=== PATIENT | female | born 1990 | race Hispanic/Latino ===

== ENCOUNTER 2017-12-31 22:04 | Emergency (ER) | payer MEDICAID ==
[2017-12-31 22:41] LABS: BASOPHILS % (AUTO) 0.1 % (0.0-5.0); EOSINOPHILS % (AUTO) 0.2 % (0.0-8.0); HEMATOCRIT 37.5 % (36-48); LYMPHOCYTES % (AUTO) 5.4 % (21.0-51.0); MEAN CORPUSCULAR HEMOGLOBIN 24.7 pg (27.0-33.0); MEAN CORPUSCULAR HGB CONC 34.2 g/dL (32.0-36.0); MEAN CORPUSCULAR VOLUME 72.4 fL (79-99); MONOCYTES % (AUTO) 6.2 % (3.0-13.0); NEUTROPHILS % (AUTO) 88.1 % (40.0-77.0); PLATELET COUNT (AUTO) 373 K/uL (130-400); RED BLOOD CELL COUNT(AUTO) 5.18 MIL/uL (4.00-5.50); RED CELL DISTRIBUTION WIDTH 15.9 % (11.0-15.5); WHITE BLOOD COUNT (AUTO) 11.8 K/uL (4.8-10.8)
[2017-12-31 22:46] LABS: APPEARANCE,URINE Clear (CLEAR); BILIRUBIN,URINE Negative (NEGATIVE); COLOR,URINE Yellow (YELLOW); GLUCOSE, URINE (UA) >=1000 mg/dL (NEGATIVE); KETONES,URINE 15 mg/dL (NEGATIVE); LEUKOCYTE ESTERASE ,URINE Negative (NEGATIVE); NITRATE,URINE Negative (NEGATIVE); OCCULT BLOOD,URINE Negative (NEGATIVE); PROTEIN,URINE POS 1+ (NEGATIVE); UROBILINOGEN,URINE 0.2 mg/dL (0.2-1.0)
[2017-12-31 22:51] LABS: CARBON DIOXIDE 25 mmol/L (21-32); CHLORIDE 99 mmol/L (101-111); CREATININE 0.6 mg/dL (0.5-1.5); GLOMERULAR FILTR. RATE CALC 127 mL/min (>60); GLUCOSE,RANDOM 306 mg/dL (70-105); SODIUM SERUM 136 mmol/L (136-145); UREA NITROGEN, BLOOD 22 mg/dL (7-18)
[2017-12-31 22:53] LABS: HCG,QUAL RESULT NEGATIVE (NEGATIVE)
[2017-12-31 22:55] LABS: BACTERIA,URINE None Seen /HPF (None Seen); RBC,URINE None Seen /HPF (0-1); WBC,URINE None Seen /HPF (0-1)
[2017-12-31 22:56] LABS: INR 0.91 (0.85-1.15); PROTHROMBIN TIME 9.6 SEC (9.6-11.6)
[2017-12-31 23:04] LABS: ALANINE AMINOTRANSFERASE 13 U/L (12-78); ALBUMIN 3.3 g/dL (3.5-5.0); AMYLASE 45 U/L (25-115); ASPARTATE AMINOTRANSFERASE 17 U/L (10-37); BILIRUBIN,TOTAL 0.3 mg/dL (0.2-1.0); CREATINE KINASE MB < 0.5 ng/mL (0.5-3.6); CREATINE KINASE, TOTAL 28 U/L (21-232); LIPASE 96 U/L (114-286); TOTAL PROTEIN, SERUM 8.3 g/dL (6.0-8.3)
[2017-12-31 23:15] LABS: AMPHET/METH SCREEN,URINE NEGATIVE (NEGATIVE); BARBITURATE SCREEN, URINE NEGATIVE (NEGATIVE); BENZODIAZEPINES SCREEN,URINE POSITIVE (NEGATIVE); CANNABINOID SCREEN,URINE NEGATIVE (NEGATIVE); COCAINE SCREEN,URINE NEGATIVE (NEGATIVE); OPIATE SCREEN,URINE NEGATIVE (NEGATIVE); PHENCYCLIDINE SCREEN,URINE NEGATIVE (NEGATIVE)
[2018-01-01] MEDS ORDERED: ONDANSETRON HCL MDV 20ML 2 MG/ML VIAL ONE (00:19)
[2018-01-01] MEDS ORDERED: SODIUM CHLORIDE 0.9% 1000ML 1,000 ML IV ONE (00:19)
[2018-01-01] MEDS ORDERED: HYOSCYAMINE SULFATE 0.125 MG TAB.SUBL SL ONE (00:19)
[2018-01-01] MEDS ORDERED: FAMOTIDINE 20MG TAB 20 MG TAB ONE (00:19)
== END 2018-01-01 01:18 | disposition home or self-care (01) ==
LOC: EDH 22:04
DX: R10.11 Right upper quadrant pain (principal); E86.0 Dehydration; E11.65 Type 2 diabetes mellitus with hyperglycemia; R53.1 Weakness; Z90.49 Acquired absence of other specified parts of digestive tract; Z98.890 Other specified postprocedural states
CPT/HCPCS: 36415; 80053; 80305; 81001; 81025; 82150; 82550; 82553; 83690; 84443; 84484; 85025; 85610; 85730; 93005; 96361; 96374; 99285; J7030

== ENCOUNTER 2018-06-20 18:10 | Emergency (ER) | payer MEDICAID | END 2018-06-20 19:08 | disposition home or self-care (01) | LOC: EDH 18:10 | DX: N76.4 Abscess of vulva (principal); E11.9 Type 2 diabetes mellitus without complications; Z90.49 Acquired absence of other specified parts of digestive tract ==

== ENCOUNTER 2018-09-19 09:42 | Emergency (ER) | payer MEDICAID ==
[2018-09-19] MEDS ORDERED: ACETAMINOPHEN 325 MG TAB ONE (10:17)
== END 2018-09-19 10:41 | disposition home or self-care (01) ==
LOC: EDH 09:42
DX: S02.2XXA Fracture of nasal bones, initial encounter for closed fracture (principal); E11.9 Type 2 diabetes mellitus without complications; Z87.891 Personal history of nicotine dependence; Y04.2XXA Assault by strike against or bumped into by another person, initial encounter; Y93.89 Activity, other specified; Y92.89 Other specified places as the place of occurrence of the external cause; Y99.8 Other external cause status
CPT/HCPCS: 70160

== ENCOUNTER 2019-11-30 14:48 | Emergency (ER) | payer MEDICAID ==
[2019-11-30 16:37] LABS: APPEARANCE,URINE Clear (CLEAR); BILIRUBIN,URINE Negative (NEGATIVE); COLOR,URINE Yellow (YELLOW); GLUCOSE, URINE (UA) >=1000 mg/dL (NEGATIVE); HCG,QUAL RESULT NEGATIVE (NEGATIVE); KETONES,URINE 40 mg/dL (NEGATIVE); LEUKOCYTE ESTERASE ,URINE Negative (NEGATIVE); NITRATE,URINE Positive (NEGATIVE); OCCULT BLOOD,URINE Negative (NEGATIVE); PH,URINE 5.5 (5.0-8.0); PROTEIN,URINE POS 2+ mg/dL (NEGATIVE); UROBILINOGEN,URINE 0.2 mg/dL (0.2-1.0)
[2019-11-30 16:56] LABS: BACTERIA,URINE Many /HPF (None Seen); RBC,URINE None Seen /HPF (0-1); SQUAMOUS EPITHELIAL CELL,UR 0-2 /HPF (0-2); WBC,URINE 0-1 /HPF (0-1)
[2019-11-30 17:14] LABS: RAPID GROUP A STREP NEGATIVE (NEGATIVE)
[2019-11-30 17:20] LABS: BASE EXCESS,VENOUS BLOOD GAS -2.7 (-2.0-3.0); HCO3,VENOUS BLOOD GAS 22.8 (21.0-28.0); PCO2,VENOUS BLOOD GAS 42 (32-45); PH,VENOUS BLOOD GAS 7.349 (7.350-7.450)
[2019-11-30 17:36] LABS: BASOPHILS % (AUTO) 0.2 % (0.0-5.0); EOSINOPHILS % (AUTO) 0.8 % (0.0-8.0); HEMATOCRIT 35.3 % (36-48); LYMPHOCYTES % (AUTO) 19.8 % (21.0-51.0); MEAN CORPUSCULAR HEMOGLOBIN 25.7 pg (27.0-33.0); MEAN CORPUSCULAR HGB CONC 33.1 g/dL (32.0-36.0); MEAN CORPUSCULAR VOLUME 77.6 fL (79-99); MONOCYTES % (AUTO) 8.6 % (3.0-13.0); NEUTROPHILS % (AUTO) 70.4 % (40.0-77.0); PLATELET COUNT (AUTO) 336 K/uL (130-400); RED BLOOD CELL COUNT(AUTO) 4.55 MIL/uL (4.00-5.50); RED CELL DISTRIBUTION WIDTH 14.6 % (11.0-15.5); WHITE BLOOD COUNT (AUTO) 12.1 K/uL (4.8-10.8)
[2019-11-30] MEDS ORDERED: SODIUM CHLORIDE 0.9% 1000ML 1,000 ML IV ONE (17:40)
[2019-11-30] MEDS ORDERED: ONDANSETRON HCL 4 MG/2 ML VIAL ONE (17:42)
[2019-11-30 18:04] LABS: CREATININE 0.6 mg/dL (0.5-1.5); POTASSIUM 4.1 mmol/L (3.5-5.1)
[2019-11-30 18:05] LABS: INR 0.87 (0.85-1.15); PARTIAL THROMBOPLASTIN TIME 25.2 SEC (26.3-35.5); PROTHROMBIN TIME 9.2 SEC (9.6-11.6)
[2019-11-30 18:09] LABS: ALBUMIN 3.1 g/dL (3.5-5.0); BILIRUBIN,TOTAL 0.8 mg/dL (0.2-1.0); TOTAL PROTEIN, SERUM 8.1 g/dL (6.0-8.3)
[2019-11-30] MEDS ORDERED: INSULIN HUMULIN R 100 UNIT/ML 3ML ONE (18:22)
== END 2019-11-30 19:38 | disposition home or self-care (01) ==
LOC: EDH 14:48
DX: B34.9 Viral infection, unspecified (principal); E11.65 Type 2 diabetes mellitus with hyperglycemia; F41.9 Anxiety disorder, unspecified; Z87.891 Personal history of nicotine dependence
CPT/HCPCS: 36415; 36600; 80053; 81001; 81025; 82010; 82435; 82803; 82947; 82948 ×2; 83605 ×2; 83690; 84132; 84295; 84484; 85025; 85610; 85730; 87804 ×2; 87880; 93005; 96361; 96374; 96375; 99284; J1815; J2405; J7030

== ENCOUNTER 2019-12-15 08:09 | Emergency (ER) | payer MEDICAID ==
[2019-12-15] MEDS ORDERED: ACETAMINOPHEN EXTRA STRENGTH 500 MG TABLET ONE (09:48)
== END 2019-12-15 13:36 | disposition home or self-care (01) ==
LOC: EDH 08:09
DX: S93.401A Sprain of unspecified ligament of right ankle, initial encounter (principal); S90.31XA Contusion of right foot, initial encounter; S80.01XA Contusion of right knee, initial encounter; F41.9 Anxiety disorder, unspecified; E11.9 Type 2 diabetes mellitus without complications; Z90.49 Acquired absence of other specified parts of digestive tract; X58.XXXA Exposure to other specified factors, initial encounter; Y93.89 Activity, other specified; Y92.89 Other specified places as the place of occurrence of the external cause; Y99.8 Other external cause status
CPT/HCPCS: 73562; 73610; 73630; 73700

== ENCOUNTER 2020-07-16 10:19 | Observation (INO) | payer MEDICAID ==
[~2020-07-16] VITALS: Ht 152.4 cm; Wt 74.8 kg
[2020-07-16 10:48] LABS: BASOPHILS % (AUTO) 0.4 % (0.0-5.0); EOSINOPHILS % (AUTO) 1.4 % (0.0-8.0); HEMATOCRIT 35.9 % (36-48); LYMPHOCYTES % (AUTO) 31.8 % (21.0-51.0); MEAN CORPUSCULAR HEMOGLOBIN 23.8 pg (27.0-33.0); MEAN CORPUSCULAR HGB CONC 30.6 g/dL (32.0-36.0); MEAN CORPUSCULAR VOLUME 77.5 fL (79-99); MONOCYTES % (AUTO) 9.1 % (3.0-13.0); NEUTROPHILS % (AUTO) 56.9 % (40.0-77.0); PLATELET COUNT (AUTO) 363 K/uL (130-400); RED BLOOD CELL COUNT(AUTO) 4.63 MIL/uL (4.00-5.50); RED CELL DISTRIBUTION WIDTH 15.1 % (11.0-15.5); WHITE BLOOD COUNT (AUTO) 7.8 K/uL (4.8-10.8)
[2020-07-16] MEDS ORDERED: ONDANSETRON HCL 4 MG/2 ML VIAL ONE (10:49)
[2020-07-16] MEDS ORDERED: SODIUM CHLORIDE 0.9% 1000ML 1,000 ML IV ONE (10:51)
[2020-07-16 11:17] LABS: ALBUMIN 3.3 g/dL (3.5-5.0); BILIRUBIN,DIRECT 0.1 mg/dL (0.0-0.3); BILIRUBIN,TOTAL 0.3 mg/dL (0.2-1.0); CREATININE 0.6 mg/dL (0.5-1.5); POTASSIUM 4.6 mmol/L (3.5-5.1); TOTAL PROTEIN, SERUM 8.1 g/dL (6.0-8.3)
[2020-07-16 11:34] LABS: APPEARANCE,URINE Clear (CLEAR); BILIRUBIN,URINE Negative (NEGATIVE); COLOR,URINE Yellow (YELLOW); GLUCOSE, URINE (UA) >=1000 mg/dL (NEGATIVE); KETONES,URINE 40 mg/dL (NEGATIVE); LEUKOCYTE ESTERASE ,URINE Negative (NEGATIVE); NITRATE,URINE Positive (NEGATIVE); OCCULT BLOOD,URINE Trace (NEGATIVE); PROTEIN,URINE Trace mg/dL (NEGATIVE); UROBILINOGEN,URINE 0.2 mg/dL (0.2-1.0)
[2020-07-16 11:41] LABS: AMPHET/METH SCREEN,URINE NEGATIVE (NEGATIVE); BARBITURATE SCREEN, URINE NEGATIVE (NEGATIVE); BENZODIAZEPINES SCREEN,URINE POSITIVE (NEGATIVE); CANNABINOID SCREEN,URINE NEGATIVE (NEGATIVE); COCAINE SCREEN,URINE NEGATIVE (NEGATIVE); OPIATE SCREEN,URINE NEGATIVE (NEGATIVE); PHENCYCLIDINE SCREEN,URINE NEGATIVE (NEGATIVE)
[2020-07-16 11:48] LABS: HCG,QUAL RESULT NEGATIVE (NEGATIVE)
[2020-07-16 12:04] LABS: ABG OXYGEN SATURATION 84.1 % (95.0-99.0); BASE EXCESS,VENOUS BLOOD GAS -6.2 (-2.0-3.0); HCO3,VENOUS BLOOD GAS 19.2 (21.0-28.0); PCO2,VENOUS BLOOD GAS 38 (32-45); PH,VENOUS BLOOD GAS 7.324 (7.350-7.450)
[2020-07-16] MEDS ORDERED: INSULIN HUMULIN R 100 UNIT/ML 3ML ONE (12:04)
[2020-07-16 13:05] LABS: BACTERIA,URINE Many /HPF (None Seen)
[2020-07-16 13:06] LABS: RBC,URINE 0-1 /HPF (0-1)
[2020-07-16 13:38] LABS: CREATININE 0.5 mg/dL (0.5-1.5); POTASSIUM 3.9 mmol/L (3.5-5.1)
[2020-07-16 14:15] LABS: ABG BASE EXCESS -7.8 mmol/L (-2.0-3.0); ABG HCO3 18.3 mmol/L (21.0-28.0); ABG OXYGEN SATURATION 95.3 % (95.0-99.0); ABG PCO2 39 mmHg (32-45)
[2020-07-16] MEDS ORDERED: DEXTROSE 50%-WATER 50 ML DISP.SYRIN IV PRN (14:45)
[2020-07-16] MEDS ORDERED: MORPHINE SULFATE 4 MG/1ML SYG IV PRN (14:45)
[2020-07-16] MEDS ORDERED: MAGNESIUM 2GM PREMIX 50ML 50 ML IV PRN (14:45)
[2020-07-16] MEDS ORDERED: POTASSIUM CHLORIDE 10% ELIXIR 20 MEQ/15 ML UDCUP PO PRN (14:45)
[2020-07-16] MEDS ORDERED: GLUCAGON 1MG KIT 1 MG ML IM PRN (14:45)
[2020-07-16] MEDS ORDERED: ACETAMINOPHEN-CODEINE 300/30MG TAB PO PRN (14:45)
[2020-07-16] MEDS ORDERED: LIDOCAINE HCL-MPF 1% 2ML VIAL IV PRN (14:45)
[2020-07-16] MEDS ORDERED: POTASSIUM CHLORIDE 20MEQ/100ML 100 ML IV PRN (14:45)
[2020-07-16] MEDS: SODIUM CHLORIDE 0.9% 1000ML 1,000 ML IV SCH (16:35)
[2020-07-16] MEDS: INSULIN HUMULIN R 100 UNIT/ML 3ML SQ SCH ×2 (16:39→22:13)
[2020-07-16 16:47] VITALS: BP 133/84
[2020-07-16] MEDS: METRONIDAZOLE 500MG/100ML BAG 100 ML IV SCH ×2 (17:38→22:04)
[2020-07-16] MEDS: LEVOFLOXACIN 500 MG TABLET PO SCH (17:38)
[2020-07-16 18:10] LABS: CREATININE 0.5 mg/dL (0.5-1.5); MAGNESIUM 1.6 mg/dL (1.80-2.40); POTASSIUM 3.8 mmol/L (3.5-5.1)
[2020-07-16 19:00] VITALS: BP 136/77
[2020-07-16] MEDS: INSULIN GLARGINE 100 UNITS/ML 10 ML VIAL SQ SCH (22:11)
[2020-07-16 23:00] VITALS: BP 136/74
[2020-07-17] VITALS (7 sets, daily range): BP systolic 105–138; BP diastolic 65–83
[2020-07-17 01:15] LABS: CREATININE 0.4 mg/dL (0.5-1.5); MAGNESIUM 1.6 mg/dL (1.80-2.40); POTASSIUM 3.4 mmol/L (3.5-5.1)
[2020-07-17] MEDS: POTASSIUM CHLORIDE 20 MEQ ERTAB PO PRN ×2 (01:57→04:07)
[2020-07-17] MEDS: SODIUM CHLORIDE 0.9% 1000ML 1,000 ML IV SCH ×3 (02:07→20:45)
[2020-07-17] MEDS: INSULIN HUMULIN R 100 UNIT/ML 3ML SQ SCH ×7 (04:00→23:37)
[2020-07-17] MEDS: METRONIDAZOLE 500MG/100ML BAG 100 ML IV SCH ×3 (06:50→23:24)
[2020-07-17 07:28] LABS: CREATININE 0.4 mg/dL (0.5-1.5); POTASSIUM 4.2 mmol/L (3.5-5.1)
[2020-07-17] MEDS: LEVOFLOXACIN 500 MG TABLET PO SCH (08:39)
[2020-07-17] MEDS: ENOXAPARIN SODIUM 40 MG/0.4 ML SYRINGE SQ SCH (08:40)
--- NOTE | 2020-07-17 10:45 | NUR ---
KESHIA STEPHENS TALK TO THE PT, EDUCATED ABOUT CONDITION, TREATMENT AND ANSWERED ALL THE QUESTIONS THAT PT HAD.
[2020-07-17 12:29] LABS: CREATININE 0.6 mg/dL (0.5-1.5); MAGNESIUM 1.9 mg/dL (1.80-2.40); POTASSIUM 4.4 mmol/L (3.5-5.1)
[2020-07-17] MEDS ORDERED: ONDANSETRON HCL 4 MG/2 ML VIAL ONE (15:40)
[2020-07-17] MEDS ORDERED: ONDANSETRON HCL 4 MG/2 ML VIAL IVP PRN (15:45)
--- NOTE | 2020-07-17 19:27 | NUR ---
cm note met with patient and states resides at home with aunt and grandmother, independent with adls/ambulation, no dme. no home services. 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 dc plan is back home at de. states no dc needs. Addendum: 07/17/20 at 1930 by SUSANNE BURLESON CM Amended: Links added.
[2020-07-17] MEDS: INSULIN GLARGINE 100 UNITS/ML 10 ML VIAL SQ SCH (20:12)
[2020-07-18 03:00] VITALS: BP 108/58
[2020-07-18] MEDS: INSULIN HUMULIN R 100 UNIT/ML 3ML SQ SCH ×3 (04:15→12:01)
[2020-07-18] MEDS: SODIUM CHLORIDE 0.9% 1000ML 1,000 ML IV SCH (06:06)
[2020-07-18 06:24] LABS: BASOPHILS % (AUTO) 0.4 % (0.0-5.0); EOSINOPHILS % (AUTO) 1.8 % (0.0-8.0); HEMATOCRIT 29.9 % (36-48); LYMPHOCYTES % (AUTO) 46.5 % (21.0-51.0); MEAN CORPUSCULAR HEMOGLOBIN 23.6 pg (27.0-33.0); MEAN CORPUSCULAR HGB CONC 30.4 g/dL (32.0-36.0); MEAN CORPUSCULAR VOLUME 77.7 fL (79-99); MONOCYTES % (AUTO) 13.6 % (3.0-13.0); NEUTROPHILS % (AUTO) 37.5 % (40.0-77.0); PLATELET COUNT (AUTO) 339 K/uL (130-400); RED BLOOD CELL COUNT(AUTO) 3.85 MIL/uL (4.00-5.50); RED CELL DISTRIBUTION WIDTH 15.3 % (11.0-15.5)
[2020-07-18 06:43] LABS: ALBUMIN 2.4 g/dL (3.5-5.0); BILIRUBIN,TOTAL 0.1 mg/dL (0.2-1.0); CREATININE 0.5 mg/dL (0.5-1.5); MAGNESIUM 1.7 mg/dL (1.80-2.40); POTASSIUM 3.6 mmol/L (3.5-5.1); TOTAL PROTEIN, SERUM 6.3 g/dL (6.0-8.3)
[2020-07-18 07:10] VITALS: BP 134/79
[2020-07-18] MEDS ORDERED: METRONIDAZOLE 500MG/100ML BAG 100 ML IV SCH (08:00)
[2020-07-18] MEDS: LEVOFLOXACIN 500 MG TABLET PO SCH (08:37)
[2020-07-18] MEDS: ENOXAPARIN SODIUM 40 MG/0.4 ML SYRINGE SQ SCH (08:38)
[2020-07-18] MEDS ORDERED: LEVO500T89 PO (10:07)
[2020-07-18] MEDS ORDERED: POLY17PO4 PO (10:07)
[2020-07-18] MEDS ORDERED: DOCU-116 PO (10:07)
[2020-07-18 11:17] VITALS: BP 134/82
--- NOTE | 2020-07-18 13:58 | NUR ---
discharge discharge instructions given to patient, verbalized understanding. removed iv, removed tele.
== END 2020-07-18 13:50 | disposition home or self-care (01) ==
LOC: EDH 10:19 → EDHIP 10:20 → 4BH 16:17
PROVIDERS: ADMIT Internal Medicine Critical Care Medicine; ATTEND Internal Medicine Critical Care Medicine
DX: K59.00 Constipation, unspecified (principal); R19.7 Diarrhea, unspecified; N39.0 Urinary tract infection, site not specified; E11.9 Type 2 diabetes mellitus without complications; F41.9 Anxiety disorder, unspecified; Z90.49 Acquired absence of other specified parts of digestive tract; Z79.4 Long term (current) use of insulin; Z79.899 Other long term (current) drug therapy
CPT/HCPCS: 36415 ×3; 36600 ×2; 74176; 80048 ×6; 80053; 80076; 80305; 81001; 81025; 82010; 82550; 82803 ×2; 82948 ×10; 83690; 83735 ×5; 85025 ×2; 87046; 87077; 87088; 87186; 87493; 96361 ×3; 96365; 96366 ×3; 96367; 96372 ×5; 99284; G0378 ×50; J1650 ×2; J1815 ×6; J2405 ×2; J3475; J3490 ×6; J7030; 96368

== ENCOUNTER 2020-08-26 23:21 | Emergency (ER) | payer MEDICAID ==
[~2020-08-26 23:21] MED LIST: DOCU-116 PO; LEVO500T89 PO; POLY17PO4 PO
[2020-08-27] MEDS ORDERED: ACETAMINOPHEN EXTRA STRENGTH 500 MG TABLET ONE (00:20)
[2020-08-27] MEDS ORDERED: IBUPROFEN 600 MG TABLET ONE (00:20)
[2020-08-27] MEDS ORDERED: TETANUS/DIPHTHERIA TOXOID [ADULT] 0.5 ML VIAL IM ONE (00:21)
[2020-08-27] MEDS ORDERED: CYCLOBENZAPRINE HCL 10 MG TABLET ONE (00:21)
== END 2020-08-27 02:03 | disposition home or self-care (01) ==
LOC: EDH 23:21
DX: S01.81XA Laceration without foreign body of other part of head, initial encounter (principal); S20.219A Contusion of unspecified front wall of thorax, initial encounter; E11.9 Type 2 diabetes mellitus without complications; I10 Essential (primary) hypertension; Z98.890 Other specified postprocedural states; Z90.49 Acquired absence of other specified parts of digestive tract; Y08.89XA Assault by other specified means, initial encounter; Y93.89 Activity, other specified; Y92.098 Other place in other non-institutional residence as the place of occurrence of the external cause; Y99.8 Other external cause status
CPT/HCPCS: 71046; 81025; 82948; 90471; 90714; 93005

== ENCOUNTER 2020-09-10 12:32 | Inpatient (IN) | payer MEDICAID ==
[~2020-09-10] VITALS: Ht 152.4 cm; Wt 75.0 kg
[2020-09-10] MEDS ORDERED: ACETAMINOPHEN-CODEINE 300/30MG TAB ONE (12:49)
[2020-09-10 13:22] LABS: RAPID GROUP A STREP POSITIVE (NEGATIVE)
[2020-09-10 13:25] LABS: BASOPHILS % (AUTO) 0.4 % (0.0-5.0); EOSINOPHILS % (AUTO) 0.1 % (0.0-8.0); HEMATOCRIT 44.8 % (36-48); MEAN CORPUSCULAR HEMOGLOBIN 22.6 pg (27.0-33.0); MEAN CORPUSCULAR HGB CONC 28.3 g/dL (32.0-36.0); MEAN CORPUSCULAR VOLUME 79.6 fL (79-99); MONOCYTES % (AUTO) 8.4 % (3.0-13.0); NEUTROPHILS % (AUTO) 81.2 % (40.0-77.0); PLATELET COUNT (AUTO) 458 K/uL (130-400); RED BLOOD CELL COUNT(AUTO) 5.63 MIL/uL (4.00-5.50); RED CELL DISTRIBUTION WIDTH 15.7 % (11.0-15.5); WHITE BLOOD COUNT (AUTO) 15.1 K/uL (4.8-10.8)
[2020-09-10] MEDS ORDERED: CEFTRIAXONE SODIUM 1 GM ONE (13:43)
[2020-09-10 13:46] LABS: ALBUMIN 3.6 g/dL (3.5-5.0); BILIRUBIN,TOTAL 0.4 mg/dL (0.2-1.0); CREATININE 1.1 mg/dL (0.5-1.5); POTASSIUM 5.3 mmol/L (3.5-5.1); TOTAL PROTEIN, SERUM 10.1 g/dL (6.0-8.3)
[2020-09-10] MEDS ORDERED: SODIUM CHLORIDE 0.9% 50 ML IV ONE ×2 (13:46→14:40)
[2020-09-10] MEDS ORDERED: SODIUM CHLORIDE 0.9% 100 ML IV ONE ×2 (13:46→15:24)
[2020-09-10] MEDS ORDERED: BENZONATATE 100 MG CAPSULE PO ONE (14:07)
[2020-09-10 14:19] LABS: ABG BASE EXCESS -21.3 mmol/L (-2.0-3.0); ABG HCO3 4.8 mmol/L (21.0-28.0); ABG OXYGEN SATURATION 98.3 % (95.0-99.0); ABG PCO2 < 15 mmHg (32-45)
[2020-09-10] MEDS ORDERED: INSULIN HUMULIN R 100 UNIT/ML 3ML ONE ×2 (14:19→15:26)
[2020-09-10] MEDS ORDERED: AZITHROMYCIN 250 MG TABLET PO ONE (14:25)
[2020-09-10] MEDS ORDERED: SODIUM CHLORIDE 0.9% 1000ML 1,000 ML IV ONE (14:25)
[2020-09-10] MEDS ORDERED: SODIUM BICARB 50MEQ 50ML VIAL 50 ML ONE (14:39)
[2020-09-10] MEDS ORDERED: SODIUM CHLORIDE 0.9% 1000ML 1,000 ML IV SCH ×2 (16:45)
[2020-09-10] MEDS ORDERED: POTASSIUM CHLORIDE 20MEQ/100ML 100 ML IV PRN (16:45)
[2020-09-10] MEDS ORDERED: LABETALOL 20 MG/4 ML DISP.SYRIN IV PRN (16:45)
[2020-09-10] MEDS ORDERED: MAGNESIUM 2GM PREMIX 50ML 50 ML IV PRN (16:45)
[2020-09-10] MEDS ORDERED: POTASSIUM CHLORIDE 10MEQ/100ML 100 ML IV PRN (16:45)
[2020-09-10] MEDS ORDERED: ONDANSETRON HCL 4 MG/2 ML VIAL IVP PRN (16:45)
[2020-09-10] MEDS ORDERED: LIDOCAINE HCL-MPF 1% 2ML VIAL IV PRN (16:45)
[2020-09-10] MEDS ORDERED: ACETAMINOPHEN 325 MG TAB PO PRN (16:45)
[2020-09-10] MEDS ORDERED: DEXTROSE 5 %-0.45 % NACL 1,000 ML IV PRN (16:45)
[2020-09-10] MEDS ORDERED: ACETAMINOPHEN 650 MG SUPPOSITORY RC PRN (16:45)
[2020-09-10 17:43] LABS: APPEARANCE,URINE Clear (CLEAR); BILIRUBIN,URINE Negative (NEGATIVE); COLOR,URINE Yellow (YELLOW); GLUCOSE, URINE (UA) >=1000 mg/dL (NEGATIVE); KETONES,URINE >=160 mg/dL (NEGATIVE); LEUKOCYTE ESTERASE ,URINE Negative (NEGATIVE); NITRATE,URINE Negative (NEGATIVE); OCCULT BLOOD,URINE Small (NEGATIVE); PROTEIN,URINE 300 mg/dL (NEGATIVE); UROBILINOGEN,URINE 0.2 mg/dL (0.2-1.0)
[2020-09-10] MEDS ORDERED: LACTATED RINGERS 1000ML 1,000 ML IV ONE ×2 (18:00→23:53)
[2020-09-10 18:04] LABS: BACTERIA,URINE Few /HPF (None Seen); MUCUS,URINE Few LPF (None Seen); SQUAMOUS EPITHELIAL CELL,UR 0-2 /HPF (0-2); YEAST,URINE BUDDING Few /HPF (None Seen)
[2020-09-10 18:16] LABS: CREATININE 0.9 mg/dL (0.5-1.5); POTASSIUM 4.8 mmol/L (3.5-5.1)
[2020-09-10 22:13] LABS: POTASSIUM 3.8 mmol/L (3.5-5.1)
[2020-09-11 01:15] LABS: CREATININE 0.9 mg/dL (0.5-1.5); POTASSIUM 3.2 mmol/L (3.5-5.1)
[2020-09-11] MEDS ORDERED: LIDOCAINE HCL-MPF 1% 2ML VIAL ONE ×4 (01:25→12:30)
[2020-09-11] MEDS ORDERED: POTASSIUM CHLORIDE 10MEQ/100ML 100 ML IV ONE ×2 (01:25→02:17)
[2020-09-11] MEDS ORDERED: DEXTROSE 5 %-0.45 % NACL 1,000 ML IV ONE (01:49)
[2020-09-11] MEDS ORDERED: POTASSIUM CHLORIDE 10MEQ/100ML 100 ML IV PRN (04:15)
[2020-09-11] MEDS ORDERED: MAGNESIUM 2GM PREMIX 50ML 50 ML IV PRN (04:15)
[2020-09-11 05:32] LABS: BASOPHILS % (AUTO) 0.3 % (0.0-5.0); EOSINOPHILS % (AUTO) 0.1 % (0.0-8.0); HEMATOCRIT 31.4 % (36-48); LYMPHOCYTES % (AUTO) 31.3 % (21.0-51.0); MEAN CORPUSCULAR HEMOGLOBIN 22.6 pg (27.0-33.0); MEAN CORPUSCULAR HGB CONC 30.3 g/dL (32.0-36.0); MEAN CORPUSCULAR VOLUME 74.8 fL (79-99); MONOCYTES % (AUTO) 9.7 % (3.0-13.0); NEUTROPHILS % (AUTO) 57.7 % (40.0-77.0); PLATELET COUNT (AUTO) 324 K/uL (130-400); RED CELL DISTRIBUTION WIDTH 15.8 % (11.0-15.5); WHITE BLOOD COUNT (AUTO) 8.7 K/uL (4.8-10.8)
[2020-09-11 05:41] LABS: HEMOGLOBIN A1C 12.7 % (4.0-6.0)
[2020-09-11 06:18] LABS: CREATININE 0.7 mg/dL (0.5-1.5); MAGNESIUM 1.7 mg/dL (1.80-2.40); POTASSIUM 3.8 mmol/L (3.5-5.1)
[2020-09-11] MEDS ORDERED: MAGNESIUM 2GM PREMIX 50ML 50 ML IV ONE (08:13)
[2020-09-11] MEDS ORDERED: ENOXAPARIN SODIUM 40 MG/0.4 ML SYRINGE SQ ONE (08:13)
[2020-09-11] MEDS ORDERED: AZITHROMYCIN 500MG+NS 250ML IV SCH (09:00)
[2020-09-11] MEDS ORDERED: ENOXAPARIN SODIUM 40 MG/0.4 ML SYRINGE SQ SCH (09:00)
[2020-09-11] MEDS: CEFTRIAXONE SODIUM 1 GM IVP SCH (09:00)
[2020-09-11] MEDS: AZITHROMYCIN 500MG+NS 250ML 250 ML IV SCH (09:00)
[2020-09-11 09:55] LABS: CREATININE 0.8 mg/dL (0.5-1.5)
[2020-09-11 10:01] LABS: POTASSIUM 2.7 mmol/L (3.5-5.1)
[2020-09-11] MEDS ORDERED: POTASSIUM CHLORIDE 20MEQ/100ML 100 ML IV ONE ×2 (10:24→12:30)
[2020-09-11 10:41] LABS: ABG OXYGEN SATURATION 91.5 % (95.0-99.0); BASE EXCESS,VENOUS BLOOD GAS -5.9 (-2.0-3.0); HCO3,VENOUS BLOOD GAS 20.1 (21.0-28.0); PCO2,VENOUS BLOOD GAS 41 (32-45); PH,VENOUS BLOOD GAS 7.305 (7.350-7.450)
[2020-09-11] MEDS: METOCLOPRAMIDE 10 MG/2 ML VIAL IVP SCH ×2 (11:30→17:00)
[2020-09-11 11:34] LABS: AMPHET/METH SCREEN,URINE NEGATIVE (NEGATIVE); BARBITURATE SCREEN, URINE NEGATIVE (NEGATIVE); BENZODIAZEPINES SCREEN,URINE POSITIVE (NEGATIVE); CANNABINOID SCREEN,URINE POSITIVE (NEGATIVE); COCAINE SCREEN,URINE POSITIVE (NEGATIVE); OPIATE SCREEN,URINE POSITIVE (NEGATIVE); PHENCYCLIDINE SCREEN,URINE NEGATIVE (NEGATIVE)
[2020-09-11 13:13] LABS: CREATININE 0.8 mg/dL (0.5-1.5); POTASSIUM 3.4 mmol/L (3.5-5.1)
[2020-09-11] MEDS ORDERED: INSULIN HUMULIN R 100 UNIT/ML 3ML ONE (13:53)
[2020-09-11] MEDS ORDERED: SODIUM CHLORIDE 0.9% 50 ML IV ONE (13:55)
[2020-09-11] MEDS ORDERED: CEFTRIAXONE SODIUM 1 GM ONE (13:55)
[2020-09-11] MEDS ORDERED: SILVER SULFADIAZINE CREAM 50 GM TP ONE (13:57)
[2020-09-11] MEDS ORDERED: INSULIN GLARGINE 100 UNITS/ML 10 ML VIAL SQ ONE (14:00)
[2020-09-11] MEDS ORDERED: LACTATED RINGERS 1000ML 1,000 ML IV ONE (14:39)
[2020-09-11] MEDS ORDERED: AZITHROMYCIN 500MG+NS 250ML 250 ML IV ONE (14:44)
[2020-09-11] MEDS: LACTATED RINGERS 1000ML 1,000 ML IV SCH (16:00)
[2020-09-11 18:29] LABS: CREATININE 0.4 mg/dL (0.5-1.5); POTASSIUM 3.4 mmol/L (3.5-5.1)
[2020-09-11 20:20] VITALS: BP 119/78
[2020-09-11] MEDS ORDERED: DEXTROSE 50%-WATER 50 ML DISP.SYRIN IV PRN (20:45)
[2020-09-11] MEDS ORDERED: GLUCAGON 1MG KIT 1 MG ML IM PRN (20:45)
[2020-09-11] MEDS: PHARMACY COMMUNICATION MISC SCH (21:00)
[2020-09-11] MEDS ORDERED: INSULIN R PO SS1 SQ SCH (21:00)
[2020-09-11] MEDS ORDERED: PHARMACY COMMUNICATION MISC SCH (21:15)
[2020-09-11] MEDS: FAMOTIDINE 20MG TAB 20 MG TAB PO SCH (21:39)
[2020-09-11] MEDS: INSULIN GLARGINE 100 UNITS/ML 10 ML VIAL SQ SCH (21:40)
[2020-09-11 21:46] LABS: CREATININE 0.8 mg/dL (0.5-1.5); POTASSIUM 3.6 mmol/L (3.5-5.1)
[2020-09-11] MEDS ORDERED: POTASSIUM CHLORIDE 10% ELIXIR 20 MEQ/15 ML UDCUP PO PRN (22:15)
[2020-09-11] MEDS ORDERED: POTASSIUM CHLORIDE 20MEQ/100ML 100 ML IV PRN (22:15)
[2020-09-11] MEDS ORDERED: LIDOCAINE HCL-MPF 1% 2ML VIAL IV PRN (22:15)
[2020-09-11] MEDS: POTASSIUM CHLORIDE 20 MEQ ERTAB PO PRN (23:50)
[2020-09-12] MEDS: PHARMACY COMMUNICATION MISC SCH ×4 (01:00→12:23)
[2020-09-12] MEDS: LACTATED RINGERS 1000ML 1,000 ML IV SCH ×2 (01:42→05:20)
[2020-09-12 01:43] VITALS: BP 143/82
[2020-09-12 03:47] VITALS: BP 128/80
[2020-09-12 05:19] LABS: HEMATOCRIT 32.3 % (36-48); MEAN CORPUSCULAR HEMOGLOBIN 22.6 pg (27.0-33.0); MEAN CORPUSCULAR HGB CONC 30.3 g/dL (32.0-36.0); MEAN CORPUSCULAR VOLUME 74.4 fL (79-99); RED BLOOD CELL COUNT(AUTO) 4.34 MIL/uL (4.00-5.50); WHITE BLOOD COUNT (AUTO) 7.5 K/uL (4.8-10.8)
[2020-09-12 05:46] LABS: CREATININE 0.6 mg/dL (0.5-1.5); MAGNESIUM 1.8 mg/dL (1.80-2.40); POTASSIUM 3.6 mmol/L (3.5-5.1)
[2020-09-12] MEDS: METOCLOPRAMIDE 10 MG/2 ML VIAL IVP SCH ×3 (05:46→16:34)
[2020-09-12] MEDS: INSULIN GLARGINE 100 UNITS/ML 10 ML VIAL SQ SCH ×2 (05:47→21:07)
[2020-09-12] MEDS: POTASSIUM CHLORIDE 20 MEQ ERTAB PO PRN ×2 (06:18→16:36)
[2020-09-12] MEDS: INSULIN HUMULIN R 100 UNIT/ML 3ML SQ SCH ×8 (07:33→19:49)
[2020-09-12 07:58] VITALS: BP 129/77
[2020-09-12] MEDS ORDERED: INSULIN HUMULIN R 100 UNIT/ML 3ML SQ SCH (08:00)
[2020-09-12 11:55] VITALS: BP 126/75
[2020-09-12] MEDS: AZITHROMYCIN 500MG+NS 250ML 250 ML IV SCH (12:03)
[2020-09-12] MEDS: CEFTRIAXONE SODIUM 1 GM IVP SCH (12:03)
[2020-09-12] MEDS: FAMOTIDINE 20MG TAB 20 MG TAB PO SCH ×2 (12:04→21:05)
[2020-09-12] MEDS: ENOXAPARIN SODIUM 40 MG/0.4 ML SYRINGE SQ SCH (12:05)
--- NOTE | 2020-09-12 13:56 | NUR ---
INITIAL SW spoke with patient. Patient lives with her aunt, Parul Goldberg. She has no home services. DME: glucometer (uses insulin). Patient is able to drive and complete ADL's independently. She is not currently working. PCP is Dr. Luis A Roque. Pharmacy is [facility] located on [address]. DCP is home. Addendum: 09/12/20 at 1358 by JOJO NAVARRO SS Amended: Links added.
[2020-09-12] MEDS: GUAIFENESIN-DM 200/20 MG 10 ML PO PRN ×2 (14:49→22:17)
[2020-09-12 16:32] VITALS: BP 117/70
[2020-09-12 20:00] VITALS: BP 122/83
[2020-09-12] MEDS ORDERED: MULTIVITAMIN TABLET PO SCH (20:45)
[2020-09-12] MEDS ORDERED: THIAMINE HCL 100 MG TABLET PO SCH (20:50)
[2020-09-12] MEDS: CHLORDIAZEPOXIDE HCL 25 MG CAP PO PRN (22:17)
[2020-09-13] VITALS: BP 137/80
[2020-09-13] MEDS: CHLORDIAZEPOXIDE HCL 25 MG CAP PO PRN (01:29)
[2020-09-13 04:00] VITALS: BP 129/81
[2020-09-13 06:36] LABS: HEMATOCRIT 31.2 % (36-48); MEAN CORPUSCULAR HEMOGLOBIN 22.6 pg (27.0-33.0); MEAN CORPUSCULAR HGB CONC 30.4 g/dL (32.0-36.0); MEAN CORPUSCULAR VOLUME 74.3 fL (79-99); PLATELET COUNT (AUTO) 281 K/uL (130-400); RED CELL DISTRIBUTION WIDTH 16.4 % (11.0-15.5); WHITE BLOOD COUNT (AUTO) 4.9 K/uL (4.8-10.8)
[2020-09-13 06:51] LABS: ALBUMIN 2.2 g/dL (3.5-5.0); BILIRUBIN,TOTAL 0.1 mg/dL (0.2-1.0); CREATININE 0.4 mg/dL (0.5-1.5); MAGNESIUM 1.8 mg/dL (1.80-2.40); POTASSIUM 3.1 mmol/L (3.5-5.1); TOTAL PROTEIN, SERUM 6.5 g/dL (6.0-8.3)
[2020-09-13 07:00] VITALS: BP 109/67
[2020-09-13] MEDS: METOCLOPRAMIDE 10 MG/2 ML VIAL IVP SCH ×2 (07:11→11:40)
[2020-09-13] MEDS: INSULIN HUMULIN R 100 UNIT/ML 3ML SQ SCH ×4 (07:12→11:45)
[2020-09-13] MEDS: POTASSIUM CHLORIDE 20 MEQ ERTAB PO PRN (07:26)
[2020-09-13] MEDS ORDERED: INSULIN GLARGINE 100 UNITS/ML 10 ML VIAL SQ SCH (07:30)
[2020-09-13 08:12] LABS: EOSINOPHILS % (MANUAL) 5 % (1-6); LYMPHOCYTES % (MANUAL) 48 % (22-44); MAN.DIFF COMMENT-IMPRESSION MANUAL DIFFERENTIAL; MONOCYTES % (MANUAL) 10 % (2-9); PLATELET MORPHOLOGY COMMENT ADEQUATE; SEGMENTED NEUTROPHILS % 37 % (40-70)
[2020-09-13] MEDS ORDERED: AZITHROMYCIN 250 MG TABLET PO SCH (09:00)
[2020-09-13] MEDS ORDERED: MULTIVITAMIN TABLET PO SCH (09:00)
[2020-09-13] MEDS ORDERED: THIAMINE HCL 100 MG TABLET PO SCH (09:00)
[2020-09-13] MEDS: CEFTRIAXONE SODIUM 1 GM IVP SCH (09:34)
[2020-09-13] MEDS: FAMOTIDINE 20MG TAB 20 MG TAB PO SCH (09:35)
[2020-09-13] MEDS: ENOXAPARIN SODIUM 40 MG/0.4 ML SYRINGE SQ SCH (09:36)
[2020-09-13 11:00] VITALS: BP 116/75
--- NOTE | 2020-09-13 12:30 | NUR ---
DISCHARGE INSTRUCTIONS GIVEN TO PATIENT, MADE AWARE OF FOLLOW UP APPOINTMENT WITH DR. CHUA AND AWARE TO SCHEDULE FOLLOW UP WITH DR. SWANN IN 2-[address] SWANN INFO. PROVIDED PRINTED RX FOR INSULIN PER DR. SWANN AND MADE AWARE OF RX SENT TO [facility] FOR LEVAQUIN, COLACE AND MIRALAX. EDUCATED ON ALL MEDICATIONS DIET AND EXERCISE. INSTRUCTED TO STOP TAKING DIET PILLS PER MD. IV AND TELE DISCONTINUED. PATIENT AT THIS TIME DENIES ANY PAIN OR SOB. AMBULATING IN ROOM WITHOUT DIFFICULTY. PATIENT WILL BE PICKED UP BY FAMILY MEMBER
--- NOTE | 2020-09-14 09:50 | NUR ---
TRANSITIONAL CARE - POST-DISCHARGE NOTE NO ANSWER. Called patient at phone number on file. Left voicemail identifying myself and requesting a callback.
== END 2020-09-13 12:44 | disposition home or self-care (01) | DRG 420 ==
LOC: EDH 12:32 → EDHIP 12:33 → 4DH 09-11 20:21
PROVIDERS: ADMIT Internal Medicine; ATTEND Internal Medicine
DX: E10.10 Type 1 diabetes mellitus with ketoacidosis without coma (principal); E86.0 Dehydration; J02.0 Streptococcal pharyngitis; F19.10 Other psychoactive substance abuse, uncomplicated; F10.239 Alcohol dependence with withdrawal, unspecified; N39.0 Urinary tract infection, site not specified; E10.65 Type 1 diabetes mellitus with hyperglycemia; Z20.828 Contact with and (suspected) exposure to other viral communicable diseases; Z90.49 Acquired absence of other specified parts of digestive tract; Z91.19 Patient's noncompliance with other medical treatment and regimen; Z79.4 Long term (current) use of insulin
CPT/HCPCS: 36415; 36600; 70450; 71045; 80048; 80053; 80305; 81001; 82010; 82550; 82803; 82948; 83036; 83605; 83735; 84484; 84702; 85025; 85027; 86701; 87040; 87390; 87426; 87804; 87880; 93005; G0378; J0456; J0696; J1650; J1815; J2765; J3475; J3480; J3490; J7030; J7042; J7120; U0003

== ENCOUNTER 2021-05-14 17:51 | Observation (INO) | payer MEDICAID ==
[~2021-05-14] VITALS: Ht 154.9 cm; Wt 72.6 kg
[~2021-05-14 17:51] MED LIST changes: +ALBUHFA IH; +AMOX-429 PO; +GUAI-1170 PO; +INSU200I SQ; +INSU300I SQ; -LEVO500T89 PO; +PRED20TA3 PO
[2021-05-14 17:53] VITALS: BP 133/78
[2021-05-14] MEDS ORDERED: ACETAMINOPHEN 500 MG TABLET PO ONE (18:30)
[2021-05-14] MEDS ORDERED: GUAIFENESIN-CODEINE 5 ML SYRUP PO ONE (18:30)
[2021-05-14] MEDS ORDERED: KETOROLAC 15MG/ML VIAL (15MG/ML) IV ONE (18:30)
[2021-05-14 19:43] LABS: HEMATOCRIT 31.2 % (36-48); MEAN CORPUSCULAR HEMOGLOBIN 22.4 pg (27.0-33.0); MEAN CORPUSCULAR HGB CONC 30.8 g/dL (32.0-36.0); MEAN CORPUSCULAR VOLUME 72.9 fL (79-99); PLATELET COUNT (AUTO) 261 K/uL (130-400); RED BLOOD CELL COUNT(AUTO) 4.28 MIL/uL (4.00-5.50); RED CELL DISTRIBUTION WIDTH 17.7 % (11.0-15.5)
[2021-05-14 19:54] LABS: CREATININE 0.6 mg/dL (0.5-1.5)
[2021-05-14 19:59] LABS: ALBUMIN 2.5 g/dL (3.5-5.0); BILIRUBIN,TOTAL 0.3 mg/dL (0.2-1.0); TOTAL PROTEIN, SERUM 7.2 g/dL (6.0-8.3)
[2021-05-14 20:26] LABS: BAND NEUTROPHILS % (MANUAL) 4 % (0-2); EOSINOPHILS % (MANUAL) 1 % (1-6); LYMPHOCYTES % (MANUAL) 19 % (22-44); MONOCYTES % (MANUAL) 4 % (2-9); SEGMENTED NEUTROPHILS % 72 % (40-70)
[2021-05-14 20:27] LABS: MAN.DIFF COMMENT-IMPRESSION MANUAL DIFFERENTIAL; PLATELET MORPHOLOGY COMMENT ADEQUATE
[2021-05-14 20:45] LABS: ABG BASE EXCESS 0.1 mmol/L (-2.0-3.0); ABG HCO3 24.5 mmol/L (21.0-28.0); ABG OXYGEN SATURATION 92.3 % (95.0-99.0); ABG PCO2 39 mmHg (32-45)
[2021-05-14 20:51] VITALS: BP 121/74
[2021-05-14 21:51] LABS: ALBUMIN 2.5 g/dL (3.5-5.0); BILIRUBIN,DIRECT 0.1 mg/dL (0.0-0.3); BILIRUBIN,TOTAL 0.3 mg/dL (0.2-1.0); TOTAL PROTEIN, SERUM 6.8 g/dL (6.0-8.3)
[2021-05-14 21:56] LABS: CRP QUANTITATIVE 227.9 mg/L (0.00-9.0)
[2021-05-14] MEDS ORDERED: LACTULOSE 20 GM/30 ML UDCUP PO PRN (22:30)
[2021-05-14] MEDS ORDERED: NITROGLYCERIN 0.4 MG SL TAB SL PRN (22:30)
[2021-05-14] MEDS ORDERED: MAG/ALUM/SIMETH 30 ML UDCUP PO PRN (22:30)
[2021-05-14] MEDS ORDERED: ZOLPIDEM TARTRATE 5 MG TAB PO PRN (22:30)
[2021-05-14] MEDS ORDERED: ACETAMINOPHEN 325 MG TAB PO PRN (22:30)
[2021-05-14] MEDS ORDERED: ONDANSETRON 4MG INJ IV PRN (22:30)
[2021-05-14] MEDS ORDERED: AZITHROMYCIN 500MG VIAL IVPB SCH (23:00)
[2021-05-14] MEDS ORDERED: POTASSIUM CHLORIDE 10% ELIXIR 20 MEQ/15 ML UDCUP PO PRN (23:00)
[2021-05-14] MEDS ORDERED: KCL 20 MEQ ERTAB PO PRN (23:00)
[2021-05-14] MEDS ORDERED: LABETALOL 20MG VIAL IV PRN (23:00)
[2021-05-14] MEDS ORDERED: DEXTROSE 50%-WATER 50 ML DISP.SYRIN IV PRN (23:00)
[2021-05-14] MEDS ORDERED: 0.9% NACL 250ML IVPB SCH ×2 (23:00)
[2021-05-14] MEDS ORDERED: GLUCAGON 1MG KIT 1 MG ML IM PRN (23:00)
[2021-05-14] MEDS ORDERED: DOXYCYCLINE 100MG IVPB (VIAL) IVPB SCH (23:00)
[2021-05-14] MEDS ORDERED: POTASSIUM CHLORIDE 20MEQ/100ML 100 ML IV PRN (23:00)
[2021-05-14] MEDS ORDERED: SOLU-MEDROL 125MG VIAL IVP SCH (23:00)
[2021-05-14] MEDS ORDERED: MAGNESIUM 2GM PREMIX 50ML 50 ML IV PRN (23:00)
[2021-05-14] MEDS ORDERED: IOHEXOL 350 MG/ML 100ML INFUS..BTL IV ONE (23:53)
[2021-05-15] MEDS: DOXYCYCLINE 100MG+NS 250ML IV SCH ×2 (00:07→11:46)
[2021-05-15] MEDS: 0.9% NACL 250ML 250 ML IV SCH ×4 (00:07→23:26)
[2021-05-15] MEDS: AZITHROMYCIN 500MG+NS 250ML IV SCH ×2 (00:07→23:26)
[2021-05-15 01:35] VITALS: BP 124/76
[2021-05-15 02:59] LABS: HEMATOCRIT 29.7 % (36-48); LYMPHOCYTES % (AUTO) 6.7 % (21.0-51.0); MEAN CORPUSCULAR HEMOGLOBIN 22.4 pg (27.0-33.0); MEAN CORPUSCULAR HGB CONC 30.3 g/dL (32.0-36.0); MEAN CORPUSCULAR VOLUME 73.9 fL (79-99); MONOCYTES % (AUTO) 2.8 % (3.0-13.0); NEUTROPHILS % (AUTO) 90.1 % (40.0-77.0); PLATELET COUNT (AUTO) 237 K/uL (130-400); RED BLOOD CELL COUNT(AUTO) 4.02 MIL/uL (4.00-5.50); RED CELL DISTRIBUTION WIDTH 17.8 % (11.0-15.5); WHITE BLOOD COUNT (AUTO) 5.1 K/uL (4.8-10.8)
[2021-05-15 03:19] LABS: ALBUMIN 2.4 g/dL (3.5-5.0); BILIRUBIN,TOTAL 0.2 mg/dL (0.2-1.0); CREATININE 0.6 mg/dL (0.5-1.5); POTASSIUM 3.6 mmol/L (3.5-5.1); TOTAL PROTEIN, SERUM 6.7 g/dL (6.0-8.3)
[2021-05-15 03:46] VITALS: BP 113/67
[2021-05-15] MEDS: FAMOTIDINE 20MG VIAL IV SCH (08:45)
[2021-05-15] MEDS: INSULIN HUMULIN R 100 UNIT/ML 3ML SQ SCH ×4 (08:45→22:03)
[2021-05-15] MEDS: ENOXAPARIN SODIUM 40 MG/0.4 ML SYRINGE SQ SCH (08:45)
[2021-05-15] MEDS ORDERED: DEXAMETHASONE SOD PHOSPHATE 4 MG/ML 1ML VIAL IVP SCH (09:00)
[2021-05-15] MEDS ORDERED: PHARMACY COMMUNICATION MISC SCH (09:00)
[2021-05-15 10:21] VITALS: BP 128/84
[2021-05-15] MEDS: REMDESIVIR (EUA) 520 200 MG in 0.9% NACL 250ML 250 ML IV SCH ×2 (11:00→16:42)
[2021-05-15] MEDS ORDERED: COMPOUND IV REFRIGERATED 1 EACH IVSOLN MISC PRN (11:00)
[2021-05-15 15:53] VITALS: BP 135/75
[2021-05-15] MEDS: GUAIFENESIN-DM 200/20 MG 10 ML PO PRN ×2 (16:41→20:01)
[2021-05-15] MEDS: ACETAMINOPHEN 325 MG TAB PO PRN ×2 (16:42→20:01)
[2021-05-15 20:10] VITALS: BP 124/70
[2021-05-15] MEDS ORDERED: INSULIN GLARGINE 100 UNITS/ML 10 ML VIAL SQ SCH (21:00)
[2021-05-15 22:41] VITALS: BP 119/85
[2021-05-16] MEDS: 0.9% NACL 250ML 250 ML IV SCH ×2 (01:16→11:11)
[2021-05-16] MEDS: DOXYCYCLINE 100MG+NS 250ML IV SCH ×2 (01:16→11:09)
[2021-05-16 02:38] VITALS: BP 124/70
[2021-05-16 05:29] VITALS: BP 116/57
[2021-05-16] MEDS ORDERED: REMDESIVIR LABS MISC SCH (06:00)
[2021-05-16 06:16] LABS: HEMATOCRIT 30.8 % (36-48); MEAN CORPUSCULAR HEMOGLOBIN 22.3 pg (27.0-33.0); MEAN CORPUSCULAR HGB CONC 30.5 g/dL (32.0-36.0); MEAN CORPUSCULAR VOLUME 73.2 fL (79-99); RED BLOOD CELL COUNT(AUTO) 4.21 MIL/uL (4.00-5.50); RED CELL DISTRIBUTION WIDTH 17.8 % (11.0-15.5); WHITE BLOOD COUNT (AUTO) 7.9 K/uL (4.8-10.8)
[2021-05-16 06:32] LABS: CREATININE 0.5 mg/dL (0.5-1.5); MAGNESIUM 1.8 mg/dL (1.80-2.40); POTASSIUM 3.8 mmol/L (3.5-5.1)
[2021-05-16] MEDS: INSULIN HUMULIN R 100 UNIT/ML 3ML SQ SCH ×2 (07:30→12:30)
[2021-05-16 07:33] LABS: CRP QUANTITATIVE 183.7 mg/L (0.00-9.0)
[2021-05-16] MEDS: FAMOTIDINE 20MG VIAL IV SCH (08:00)
[2021-05-16] MEDS: ENOXAPARIN SODIUM 40 MG/0.4 ML SYRINGE SQ SCH (08:00)
[2021-05-16 08:14] VITALS: BP 132/81
[2021-05-16] MEDS: GUAIFENESIN-DM 200/20 MG 10 ML PO PRN (09:47)
[2021-05-16 13:06] VITALS: BP 133/70
[2021-05-16] MEDS ORDERED: REMDESIVIR (EUA) 520 100 MG in 0.9% NACL 250ML 250 ML IV SCH (14:00)
[2021-05-16] MEDS ORDERED: SOLU-MEDROL 40MG VIAL IVP SCH (21:00)
== END 2021-05-16 13:00 | disposition home or self-care (01) ==
LOC: EDH 17:51 → EDHIP 21:56
PROVIDERS: ADMIT Internal Medicine Pulmonary Disease; ATTEND Internal Medicine Pulmonary Disease
DX: U07.1 COVID-19 (principal); J96.01 Acute respiratory failure with hypoxia; J12.82 Pneumonia due to coronavirus disease 2019; E10.10 Type 1 diabetes mellitus with ketoacidosis without coma; R77.8 Other specified abnormalities of plasma proteins; J00 Acute nasopharyngitis [common cold]; E66.9 Obesity, unspecified; Z90.49 Acquired absence of other specified parts of digestive tract; Z79.899 Other long term (current) drug therapy; Z98.890 Other specified postprocedural states; Z79.4 Long term (current) use of insulin; Z68.30 Body mass index [BMI] 30.0-30.9, adult
CPT/HCPCS: 36415 ×3; 36600; 71045; 71275; 80048; 80053 ×2; 80076; 82550; 82728; 82803; 82948 ×6; 83605; 83615; 83735; 84145 ×2; 84484; 85025 ×2; 85027; 85378; 85651; 86140 ×2; 87635; 87804 ×2; 93005; 93970; 94760 ×2; 96365; 96366 ×2; 96367; 96368; 96372 ×2; 96375 ×3; 96376; 99285; C9803; G0378 ×38; J0456 ×2; J1650 ×2; J1815 ×4; J1885; J2405; J2930 ×2; J3490 ×4; J7050 ×3; Q9967; S0028 ×2

== ENCOUNTER 2021-06-15 14:48 | Inpatient (IN) | payer MEDICAID ==
[~2021-06-15] VITALS: Ht 157.5 cm; Wt 70.3 kg
[2021-06-15] MEDS: 1/2 NS IV SCH (01:17)
[2021-06-15] MEDS: SYRING IV SCH (01:17)
[2021-06-15] MEDS: SODIUM BICARB 8.4% IV SCH (01:17)
[~2021-06-15 14:48] MED LIST changes: -ALBUHFA IH; -AMOX-429 PO; -PRED20TA3 PO
[2021-06-15 15:34] VITALS: BP 156/64
[2021-06-15] MEDS ORDERED: ACETAMINOPHEN 500 MG TABLET ONE (15:40)
[2021-06-15] MEDS ORDERED: ACETAMINOPHEN 500 MG TABLET PO ONE (16:00)
[2021-06-15] MEDS ORDERED: IBUP-2070 PO (17:02)
[2021-06-15] MEDS ORDERED: ACET-66 PO (17:02)
[2021-06-15] MEDS ORDERED: INSULIN HUMULIN R 100 UNIT/ML 3ML IV ONE (17:30)
[2021-06-15] MEDS ORDERED: 0.9%NACL 1000ML 1,000 ML IV ONE (17:30)
[2021-06-15] MEDS ORDERED: ONDANSETRON 4MG INJ IV SCH (17:30)
[2021-06-15 17:58] LABS: APPEARANCE,URINE Clear (CLEAR); BILIRUBIN,URINE Negative (NEGATIVE); COLOR,URINE Yellow (YELLOW); GLUCOSE, URINE (UA) >=1000 mg/dL (NEGATIVE); KETONES,URINE >=160 mg/dL (NEGATIVE); LEUKOCYTE ESTERASE ,URINE Negative (NEGATIVE); NITRATE,URINE Negative (NEGATIVE); OCCULT BLOOD,URINE Large (NEGATIVE); PH,URINE 5.5 (5.0-8.0); PROTEIN,URINE 300 mg/dL (NEGATIVE); UROBILINOGEN,URINE 0.2 mg/dL (0.2-1.0)
[2021-06-15 18:14] LABS: BASOPHILS % (AUTO) 0.2 % (0.0-5.0); EOSINOPHILS % (AUTO) 0.3 % (0.0-8.0); HEMATOCRIT 42.1 % (36-48); MEAN CORPUSCULAR HEMOGLOBIN 22.1 pg (27.0-33.0); MEAN CORPUSCULAR HGB CONC 28.7 g/dL (32.0-36.0); MEAN CORPUSCULAR VOLUME 76.8 fL (79-99); MONOCYTES % (AUTO) 1.4 % (3.0-13.0); NEUTROPHILS % (AUTO) 85.9 % (40.0-77.0); PLATELET COUNT (AUTO) 470 K/uL (130-400); RED BLOOD CELL COUNT(AUTO) 5.48 MIL/uL (4.00-5.50); RED CELL DISTRIBUTION WIDTH 18.2 % (11.0-15.5); WHITE BLOOD COUNT (AUTO) 13.9 K/uL (4.8-10.8)
[2021-06-15 18:19] LABS: ABG BASE EXCESS -25.2 mmol/L (-2.0-3.0); ABG HCO3 3.4 mmol/L (21.0-28.0); ABG OXYGEN SATURATION 97.5 % (95.0-99.0); ABG PCO2 < 14 mmHg (32-45)
[2021-06-15 18:24] LABS: BACTERIA,URINE Rare /HPF (None Seen); SQUAMOUS EPITHELIAL CELL,UR Rare /HPF (0-2); WBC,URINE 0-1 /HPF (0-1)
[2021-06-15 18:36] LABS: ALANINE AMINOTRANSFERASE 15 U/L (12-78); AMYLASE 41 U/L (25-115); ASPARTATE AMINOTRANSFERASE 13 U/L (10-37); BILIRUBIN,TOTAL 0.5 mg/dL (0.2-1.0); CHLORIDE 92 mmol/L (101-111); CREATINE KINASE, TOTAL 46 U/L (21-232); CREATININE 1.3 mg/dL (0.5-1.5); GLOMERULAR FILTR. RATE CALC 51 mL/min (>60); LIPASE 176 U/L (114-286); SODIUM SERUM 129 mmol/L (136-145); TOTAL PROTEIN, SERUM 10.1 g/dL (6.0-8.3); UREA NITROGEN, BLOOD 25 mg/dL (7-18)
[2021-06-15 19:11] LABS: CARBON DIOXIDE 3 mmol/L (21-32); GLUCOSE,RANDOM 506 mg/dL (70-105)
[2021-06-15] MEDS: 0.9%NACL 1000ML 1,000 ML IV SCH ×2 (20:00→21:42)
[2021-06-15] MEDS ORDERED: ONDANSETRON 4MG INJ IV PRN (20:00)
[2021-06-15] MEDS ORDERED: NITROGLYCERIN 0.4 MG SL TAB SL PRN (20:00)
[2021-06-15 20:11] LABS: AMPHET/METH SCREEN,URINE NEGATIVE (NEGATIVE); BARBITURATE SCREEN, URINE NEGATIVE (NEGATIVE); BENZODIAZEPINES SCREEN,URINE NEGATIVE (NEGATIVE); CANNABINOID SCREEN,URINE NEGATIVE (NEGATIVE); COCAINE SCREEN,URINE POSITIVE (NEGATIVE); OPIATE SCREEN,URINE NEGATIVE (NEGATIVE); PHENCYCLIDINE SCREEN,URINE NEGATIVE (NEGATIVE)
[2021-06-15] MEDS ORDERED: 0.9%NACL 100ML 100 ML ONE (20:25)
[2021-06-15] MEDS ORDERED: INSULIN HUMULIN R 100 UNIT/ML 3ML ONE (20:42)
[2021-06-15] MEDS ORDERED: KETOROLAC 15MG/ML VIAL (15MG/ML) ONE (21:02)
[2021-06-15] MEDS: FAMOTIDINE 20MG VIAL IV SCH (21:40)
[2021-06-15] MEDS: CEFTRIAXONE 1G VIAL IV SCH (21:41)
[2021-06-15] MEDS: SODIUM BICARB 50MEQ 50ML VIAL IV SCH (21:41)
[2021-06-15] MEDS: INSULIN REGULAR, HUMAN 3ML 100 UNIT in 0.9%NACL 100ML 99 ML IV PRN ×2 (21:43)
[2021-06-15] MEDS: KETOROLAC 15MG/ML VIAL (15MG/ML) IV PRN (21:48)
[2021-06-15 22:00] VITALS: BP 147/65
[2021-06-15 22:07] LABS: CREATININE 0.5 mg/dL (0.5-1.5); POTASSIUM 3.7 mmol/L (3.5-5.1)
[2021-06-15 23:00] VITALS: BP 130/65
[2021-06-16] VITALS (22 sets, daily range): BP systolic 115–148; BP diastolic 53–89
[2021-06-16] MEDS: 0.9%NACL 1000ML 1,000 ML IV SCH ×6 (01:00→18:06)
[2021-06-16] MEDS: DEXTROSE 5 %-0.45 % NACL 1,000 ML IV PRN ×3 (01:17→15:13)
[2021-06-16] MEDS: SODIUM BICARB 50MEQ 50ML VIAL IV SCH ×3 (01:27→02:33)
[2021-06-16 02:13] LABS: ABG BASE EXCESS -21.1 mmol/L (-2.0-3.0); ABG HCO3 4.5 mmol/L (21.0-28.0); ABG OXYGEN SATURATION 97.4 % (95.0-99.0); ABG PCO2 < 14 mmHg (32-45)
[2021-06-16] MEDS: SODIUM BICARB 8.4% IV SCH ×2 (04:10→11:27)
[2021-06-16] MEDS: SYRING IV SCH ×2 (04:10→11:27)
[2021-06-16] MEDS: 1/2 NS IV SCH ×2 (04:10→11:27)
[2021-06-16 05:28] LABS: MAGNESIUM 1.4 mg/dL (1.80-2.40); POTASSIUM 3.5 mmol/L (3.5-5.1)
[2021-06-16 07:28] LABS: ABG BASE EXCESS -10.4 mmol/L (-2.0-3.0); ABG HCO3 15.6 mmol/L (21.0-28.0); ABG OXYGEN SATURATION 51.3 % (95.0-99.0); ABG PCO2 35 mmHg (32-45)
[2021-06-16 07:48] LABS: ABG BASE EXCESS -10.1 mmol/L (-2.0-3.0); ABG HCO3 14.6 mmol/L (21.0-28.0); ABG OXYGEN SATURATION 96.3 % (95.0-99.0); ABG PCO2 30 mmHg (32-45)
[2021-06-16 08:25] LABS: BASOPHILS % (AUTO) 0.3 % (0.0-5.0); EOSINOPHILS % (AUTO) 0.3 % (0.0-8.0); HEMATOCRIT 33.7 % (36-48); LYMPHOCYTES % (AUTO) 16.9 % (21.0-51.0); MEAN CORPUSCULAR HGB CONC 29.7 g/dL (32.0-36.0); MEAN CORPUSCULAR VOLUME 74.1 fL (79-99); MONOCYTES % (AUTO) 12.9 % (3.0-13.0); NEUTROPHILS % (AUTO) 68.8 % (40.0-77.0); PLATELET COUNT (AUTO) 370 K/uL (130-400); RED BLOOD CELL COUNT(AUTO) 4.55 MIL/uL (4.00-5.50); WHITE BLOOD COUNT (AUTO) 11.6 K/uL (4.8-10.8)
[2021-06-16 08:56] LABS: POTASSIUM 3.5 mmol/L (3.5-5.1)
[2021-06-16] MEDS: FAMOTIDINE 20MG VIAL IV SCH ×2 (09:03→21:00)
[2021-06-16] MEDS: ENOXAPARIN SODIUM 40 MG/0.4 ML SYRINGE SQ SCH (09:05)
[2021-06-16] MEDS: INSULIN REGULAR, HUMAN 3ML 100 UNIT in 0.9%NACL 100ML 99 ML IV PRN ×6 (09:32→11:32)
[2021-06-16] MEDS ORDERED: MAGNESIUM 2GM PREMIX 50ML 50 ML IV ONE (10:12)
[2021-06-16] MEDS ORDERED: COMPOUND IV REFRIGERATED 1 EACH IVSOLN MISC PRN (13:30)
[2021-06-16] MEDS ORDERED: INSULIN GLARGINE 100 UNITS/ML 10 ML VIAL SQ ONE (13:30)
[2021-06-16] MEDS: M.V.I. IV [ADULT] 10 ML, FOLIC ACID 1 MG, THIAMINE HCL 100 MG in 0.9%NACL 1000ML 1,000 ML IV SCH (14:00)
[2021-06-16 14:04] LABS: CREATININE 0.9 mg/dL (0.5-1.5); MAGNESIUM 1.8 mg/dL (1.80-2.40)
[2021-06-16 14:10] LABS: POTASSIUM 2.7 mmol/L (3.5-5.1)
[2021-06-16 15:03] LABS: ABG OXYGEN SATURATION 89.7 % (95.0-99.0); HCO3,VENOUS BLOOD GAS 22.3 (21.0-28.0); PCO2,VENOUS BLOOD GAS 37 (32-45); PH,VENOUS BLOOD GAS 7.402 (7.350-7.450)
[2021-06-16] MEDS: POTASSIUM CHLORIDE 10MEQ/100ML 100 ML IV PRN ×3 (15:16→22:58)
[2021-06-16] MEDS ORDERED: POTASSIUM CHLORIDE 20MEQ/100ML 100 ML IV PRN (16:30)
[2021-06-16] MEDS ORDERED: KCL 20 MEQ ERTAB PO PRN (16:30)
[2021-06-16] MEDS ORDERED: POTASSIUM CHLORIDE 10% ELIXIR 20 MEQ/15 ML UDCUP PO PRN (16:30)
[2021-06-16] MEDS ORDERED: AZITHROMYCIN 500MG+NS 250ML 250 ML IV ONE (16:32)
[2021-06-16 16:40] LABS: CREATININE 0.9 mg/dL (0.5-1.5)
[2021-06-16 16:49] LABS: POTASSIUM 2.6 mmol/L (3.5-5.1)
[2021-06-16] MEDS: 0.9% NACL 250ML IVPB SCH (16:58)
[2021-06-16] MEDS: AZITHROMYCIN 500MG VIAL IVPB SCH (16:58)
[2021-06-16] MEDS: LIDOCAINE HCL-MPF 1% 2ML VIAL IV PRN (17:01)
[2021-06-16] MEDS: D5W-1/2 NS/20MEQ KCL 1,000 ML IV SCH ×2 (18:05→23:26)
[2021-06-16] MEDS: IPRATROPIUM/ALBUTEROL SULFATE 3 ML SOLUTION IH SCH (19:43)
[2021-06-16] MEDS: CEFTRIAXONE 1G VIAL IV SCH (20:00)
[2021-06-16 20:53] LABS: CREATININE 0.8 mg/dL (0.5-1.5); MAGNESIUM 1.9 mg/dL (1.80-2.40); POTASSIUM 3.3 mmol/L (3.5-5.1)
[2021-06-16] MEDS: INSULIN GLARGINE 100 UNITS/ML 10 ML VIAL SQ SCH (21:00)
[2021-06-16] MEDS ORDERED: LORAZEPAM 2 MG/ML 1 ML VIAL IVP PRN (23:00)
[2021-06-17] VITALS (13 sets, daily range): BP systolic 100–158; BP diastolic 45–81
[2021-06-17] MEDS: POTASSIUM CHLORIDE 10MEQ/100ML 100 ML IV PRN ×4 (00:03→07:37)
[2021-06-17] MEDS: IPRATROPIUM/ALBUTEROL SULFATE 3 ML SOLUTION IH SCH ×5 (00:09→23:27)
[2021-06-17] MEDS: 0.9%NACL 1000ML 1,000 ML IV SCH ×2 (02:00→05:57)
[2021-06-17 03:30] LABS: HEMATOCRIT 28.4 % (36-48); MEAN CORPUSCULAR HEMOGLOBIN 22.4 pg (27.0-33.0); MEAN CORPUSCULAR VOLUME 72.3 fL (79-99); RED BLOOD CELL COUNT(AUTO) 3.93 MIL/uL (4.00-5.50); WHITE BLOOD COUNT (AUTO) 7.4 K/uL (4.8-10.8)
[2021-06-17 03:42] LABS: ALBUMIN 2.5 g/dL (3.5-5.0); BILIRUBIN,DIRECT 0.1 mg/dL (0.0-0.3); BILIRUBIN,TOTAL 0.2 mg/dL (0.2-1.0); POTASSIUM 3.1 mmol/L (3.5-5.1); TOTAL PROTEIN, SERUM 6.4 g/dL (6.0-8.3)
[2021-06-17 03:55] LABS: CREATININE 0.8 mg/dL (0.5-1.5)
[2021-06-17 05:10] LABS: BASE EXCESS,VENOUS BLOOD GAS -0.4 (-2.0-3.0); HCO3,VENOUS BLOOD GAS 23.9 (21.0-28.0); PCO2,VENOUS BLOOD GAS 38 (32-45); PH,VENOUS BLOOD GAS 7.415 (7.350-7.450)
[2021-06-17] MEDS: D5W-1/2 NS/20MEQ KCL 1,000 ML IV SCH (05:55)
[2021-06-17] MEDS: INSULIN GLARGINE 100 UNITS/ML 10 ML VIAL SQ SCH (05:57)
[2021-06-17] MEDS ORDERED: MAGNESIUM 2GM PREMIX 50ML 50 ML IV ONE (07:04)
[2021-06-17] MEDS: LIDOCAINE HCL-MPF 1% 2ML VIAL IV PRN (07:37)
[2021-06-17] MEDS ORDERED: MAGNESIUM 2GM PREMIX 50ML 50 ML IV PRN (08:00)
[2021-06-17] MEDS: KETOROLAC 15MG/ML VIAL (15MG/ML) IV PRN (08:02)
[2021-06-17] MEDS: M.V.I. IV [ADULT] 10 ML, FOLIC ACID 1 MG, THIAMINE HCL 100 MG in 0.9%NACL 1000ML 1,000 ML IV SCH (09:00)
[2021-06-17 09:16] LABS: CREATININE 0.8 mg/dL (0.5-1.5); MAGNESIUM 2.3 mg/dL (1.80-2.40); POTASSIUM 3.9 mmol/L (3.5-5.1)
[2021-06-17] MEDS ORDERED: INSULIN GLARGINE 100 UNITS/ML 10 ML VIAL SQ SCH (09:30)
[2021-06-17] MEDS: FAMOTIDINE 20MG VIAL IV SCH ×2 (10:01→20:08)
[2021-06-17] MEDS: ENOXAPARIN SODIUM 40 MG/0.4 ML SYRINGE SQ SCH (10:01)
[2021-06-17] MEDS: THIAMINE HCL 100 MG/ML 2ML VIAL IVP SCH (10:01)
[2021-06-17] MEDS: INSULIN HUMULIN R 100 UNIT/ML 3ML SQ SCH ×4 (11:23→20:35)
[2021-06-17] MEDS: 0.9% NACL 250ML IVPB SCH (12:42)
[2021-06-17] MEDS: AZITHROMYCIN 500MG VIAL IVPB SCH (13:58)
[2021-06-17] MEDS: CEFTRIAXONE 1G VIAL IV SCH (20:07)
[2021-06-18 03:10] VITALS: BP 148/86
[2021-06-18] MEDS: INSULIN HUMULIN R 100 UNIT/ML 3ML SQ SCH ×4 (06:25→11:30)
[2021-06-18] MEDS: THIAMINE HCL 100 MG/ML 2ML VIAL IVP SCH (09:00)
[2021-06-18] MEDS: M.V.I. IV [ADULT] 10 ML, FOLIC ACID 1 MG, THIAMINE HCL 100 MG in 0.9%NACL 1000ML 1,000 ML IV SCH (09:00)
[2021-06-18] MEDS ORDERED: MULTIVITAMIN WITH MINERALS TABLET PO SCH (09:00)
[2021-06-18] MEDS ORDERED: INSULIN GLARGINE 100 UNITS/ML 10 ML VIAL SQ SCH (09:00)
[2021-06-18] MEDS ORDERED: THIAMINE HCL 100 MG TABLET PO SCH (09:00)
[2021-06-18] MEDS: FAMOTIDINE 20MG VIAL IV SCH (09:23)
[2021-06-18] MEDS: ENOXAPARIN SODIUM 40 MG/0.4 ML SYRINGE SQ SCH (09:24)
[2021-06-18 09:58] VITALS: BP 140/85
[2021-06-18 11:27] VITALS: BP 139/85
[2021-06-18] MEDS ORDERED: INSU100I15 SQ (13:47)
[2021-06-18] MEDS ORDERED: INSLAN SQ (14:01)
== END 2021-06-18 15:40 | disposition home or self-care (01) | DRG 420 ==
LOC: EDH 14:48 → EDHIP 19:57 → OBSVTOIN 19:57 → INTOOBSV 19:57 → 2DH 06-16 13:00 → 3BH 06-18 01:09
PROVIDERS: ADMIT Internal Medicine Critical Care Medicine; ATTEND Internal Medicine Critical Care Medicine
DX: E11.10 Type 2 diabetes mellitus with ketoacidosis without coma (principal); E87.8 Other disorders of electrolyte and fluid balance, not elsewhere classified; N39.0 Urinary tract infection, site not specified; E86.0 Dehydration; F41.9 Anxiety disorder, unspecified; F14.129 Cocaine abuse with intoxication, unspecified; Z20.822 Contact with and (suspected) exposure to COVID-19; J00 Acute nasopharyngitis [common cold]; Z90.49 Acquired absence of other specified parts of digestive tract; Z91.14 Patient's other noncompliance with medication regimen; Z79.4 Long term (current) use of insulin
CPT/HCPCS: 36415; 36600; 71045; 74176; 80048; 80053; 80061; 80076; 80305; 81001; 82010; 82150; 82435; 82550; 82803; 82947; 82948; 83605; 83690; 83735; 84132; 84295; 84484; 85018; 85025; 85027; 87040; 87635; 87804; 93005; 94640; 94664; C9803; G0378; J0456; J0696; J1650; J1815; J1885; J2405; J3411; J3475; J3480; J3490; J7030; J7042

== ENCOUNTER 2022-04-17 10:07 | Emergency (ER) | payer MEDICAID ==
[~2022-04-17] VITALS: Ht 154.9 cm; Wt 66.7 kg
[~2022-04-17 10:07] MED LIST changes: -GUAI-1170 PO; +INSLAN SQ; +INSU100I15 SQ; -INSU200I SQ; -INSU300I SQ; -POLY17PO4 PO
[2022-04-17 10:56] VITALS: BP 157/89
[2022-04-17] MEDS ORDERED: ONDA4TAB10 PO (11:25)
[2022-04-17] MEDS ORDERED: ACETAMINOPHEN 500 MG TABLET PO ONE (11:30)
== END 2022-04-17 11:53 | disposition home or self-care (01) ==
LOC: EDH 10:07
DX: B34.9 Viral infection, unspecified (principal); E11.9 Type 2 diabetes mellitus without complications; Z20.822 Contact with and (suspected) exposure to COVID-19; F17.200 Nicotine dependence, unspecified, uncomplicated; Z79.899 Other long term (current) drug therapy; Z90.49 Acquired absence of other specified parts of digestive tract; Z79.4 Long term (current) use of insulin
CPT/HCPCS: 99283; 87635; 87880; 87804 ×2; C9803

== ENCOUNTER 2022-06-13 11:56 | Emergency (ER) | payer MEDICAID ==
[~2022-06-13] VITALS: Ht 154.9 cm; Wt 64.4 kg
[~2022-06-13 11:56] MED LIST changes: +ONDA4TAB10 PO
[2022-06-13 12:01] VITALS: BP 169/108
[2022-06-13] MEDS ORDERED: 0.9%NACL 1000ML 1,000 ML IV ONE (12:30)
[2022-06-13 13:05] LABS: BASOPHILS % (AUTO) 0.2 % (0.0-5.0); EOSINOPHILS % (AUTO) 0.7 % (0.0-8.0); HEMATOCRIT 43.8 % (36-48); LYMPHOCYTES % (AUTO) 21.7 % (21.0-51.0); MEAN CORPUSCULAR HEMOGLOBIN 28.5 pg (27.0-33.0); MEAN CORPUSCULAR HGB CONC 33.3 g/dL (32.0-36.0); MEAN CORPUSCULAR VOLUME 85.5 fL (79-99); MONOCYTES % (AUTO) 5.4 % (3.0-13.0); NEUTROPHILS % (AUTO) 71.7 % (40.0-77.0); PLATELET COUNT (AUTO) 279 K/uL (130-400); RED BLOOD CELL COUNT(AUTO) 5.12 MIL/uL (4.00-5.50); RED CELL DISTRIBUTION WIDTH 13.2 % (11.0-15.5); WHITE BLOOD COUNT (AUTO) 9.8 K/uL (4.8-10.8)
[2022-06-13 13:17] LABS: CREATININE 0.7 mg/dL (0.5-1.5); POTASSIUM 4.3 mmol/L (3.5-5.1)
[2022-06-13 13:20] LABS: ALBUMIN 3.7 g/dL (3.5-5.0); TOTAL PROTEIN, SERUM 8.2 g/dL (6.0-8.3)
[2022-06-13] MEDS ORDERED: DiphenhydrAMINE HCL 50 MG/ML VIAL IV ONE (14:00)
[2022-06-13] MEDS ORDERED: PROCHLORPERAZINE 10MG/2ML INJ IV ONE (14:00)
[2022-06-13 14:08] LABS: APPEARANCE,URINE SL CLOUDY (CLEAR); BILIRUBIN,URINE NEGATIVE (NEGATIVE); COLOR,URINE YELLOW (YELLOW); GLUCOSE, URINE (UA) NEGATIVE (NEGATIVE); KETONES,URINE NEGATIVE (NEGATIVE); LEUKOCYTE ESTERASE ,URINE TRACE (NEGATIVE); NITRATE,URINE NEGATIVE (NEGATIVE); OCCULT BLOOD,URINE TRACE-INTACT (NEGATIVE); PROTEIN,URINE 30 mg/dL (NEGATIVE); UROBILINOGEN,URINE 0.2 mg/dL (0.2-1.0)
[2022-06-13 14:12] LABS: HCG,QUALITATIVE URINE NEGATIVE (NEGATIVE)
[2022-06-13 14:20] LABS: BACTERIA,URINE Moderate /HPF (None Seen); SQUAMOUS EPITHELIAL CELL,UR Few /HPF (0-2)
[2022-06-13] MEDS ORDERED: CEFTRIAXONE 1G VIAL IVP ONE (14:30)
[2022-06-13] MEDS ORDERED: KETOROLAC 15MG/ML VIAL (15MG/ML) ONE (15:49)
[2022-06-13] MEDS ORDERED: CEPH500B PO (15:54)
[2022-06-13] MEDS ORDERED: KETOROLAC 15MG/ML VIAL (15MG/ML) IV ONE (16:00)
== END 2022-06-13 16:30 | disposition home or self-care (01) ==
LOC: EDH 11:56
DX: G43.909 Migraine, unspecified, not intractable, without status migrainosus (principal); N39.0 Urinary tract infection, site not specified; E11.9 Type 2 diabetes mellitus without complications; F17.200 Nicotine dependence, unspecified, uncomplicated; Z79.1 Long term (current) use of non-steroidal anti-inflammatories (NSAID); Z79.4 Long term (current) use of insulin; Z79.899 Other long term (current) drug therapy; Z90.49 Acquired absence of other specified parts of digestive tract
CPT/HCPCS: 99284; 96374; 70450; 96375; 96361; 80053; 85025; 87077; 87088; 87186; 81001; 81025; 36415; J1200; J7030; J0780; J0696; J1885

== ENCOUNTER 2022-09-06 13:39 | Emergency (ER) | payer MEDICAID ==
[~2022-09-06] VITALS: Ht 154.9 cm; Wt 59.9 kg
[~2022-09-06 13:39] MED LIST changes: +CEPH500B PO
[2022-09-06 14:42] LABS: HEMATOCRIT 33.7 % (36-48); RED BLOOD CELL COUNT(AUTO) 4.17 MIL/uL (4.00-5.50); WHITE BLOOD COUNT (AUTO) 12.6 K/uL (4.8-10.8)
[2022-09-06 14:43] LABS: BASOPHILS % (AUTO) 0.2 % (0.0-5.0); EOSINOPHILS % (AUTO) 0.1 % (0.0-8.0); LYMPHOCYTES % (AUTO) 5.7 % (21.0-51.0); MEAN CORPUSCULAR HEMOGLOBIN 26.6 pg (27.0-33.0); MEAN CORPUSCULAR HGB CONC 32.9 g/dL (32.0-36.0); MEAN CORPUSCULAR VOLUME 80.8 fL (79-99); MONOCYTES % (AUTO) 8.9 % (3.0-13.0); NEUTROPHILS % (AUTO) 84.7 % (40.0-77.0); PLATELET COUNT (AUTO) 281 K/uL (130-400); RED CELL DISTRIBUTION WIDTH 13.1 % (11.0-15.5)
[2022-09-06 14:56] LABS: CREATININE 0.7 mg/dL (0.5-1.5); POTASSIUM 3.7 mmol/L (3.5-5.1)
[2022-09-06 14:59] LABS: TOTAL PROTEIN, SERUM 7.9 g/dL (6.0-8.3)
[2022-09-06 15:23] LABS: APPEARANCE,URINE CLOUDY (CLEAR); BILIRUBIN,URINE NEGATIVE (NEGATIVE); COLOR,URINE LIGHT-YELLOW (YELLOW); GLUCOSE, URINE (UA) >=1000 mg/dL (NEGATIVE); KETONES,URINE 60 mg/dL (NEGATIVE); LEUKOCYTE ESTERASE ,URINE 250 Leu/uL (NEGATIVE); NITRATE,URINE NEGATIVE (NEGATIVE); PH,URINE 6.5 (5.0-8.0); PROTEIN,URINE 100 mg/dL (NEGATIVE); UROBILINOGEN,URINE 0.2 mg/dL (0.2-1.0)
[2022-09-06 15:25] LABS: HCG,QUALITATIVE URINE NEGATIVE (NEGATIVE)
[2022-09-06] MEDS ORDERED: KETOROLAC 60 MG VIAL (30MG/ML) IM ONE ×2 (15:30→16:04)
[2022-09-06] MEDS ORDERED: ONDANSETRON 4MG INJ IVP ONE (15:30)
[2022-09-06] MEDS ORDERED: ACETAMINOPHEN 500 MG TABLET PO ONE (15:30)
[2022-09-06] MEDS ORDERED: 0.9%NACL 1000ML 1,000 ML IV SCH (15:30)
[2022-09-06 15:39] LABS: BACTERIA,URINE RARE /HPF (None Seen); MUCUS,URINE RARE LPF (None Seen); OTHER CASTS, URINE 1 /LPF (None Seen); SQUAMOUS EPITHELIAL CELL,UR RARE /HPF (0-2); WBC,URINE >100 /HPF (0-1)
[2022-09-06 15:59] LABS: ABG BASE EXCESS -1.9 mmol/L (-2.0-3.0); ABG HCO3 21.4 mmol/L (21.0-28.0); ABG OXYGEN SATURATION 95.7 % (95.0-99.0); ABG PCO2 33 mmHg (32-45)
[2022-09-06] MEDS ORDERED: INSULIN HUMULIN R 100 UNIT/ML 3ML IV ONE (16:00)
[2022-09-06] MEDS ORDERED: ONDANSETRON 4MG INJ ONE (16:04)
[2022-09-06] MEDS ORDERED: 0.9%NACL 1000ML 1,000 ML IV ONE (16:05)
[2022-09-06] MEDS ORDERED: ACETAMINOPHEN 500 MG TABLET ONE (16:05)
[2022-09-06] MEDS ORDERED: INSULIN HUMULIN R 100 UNIT/ML 3ML ONE (16:05)
[2022-09-06] MEDS ORDERED: CEFTRIAXONE 1G VIAL IVP ONE (16:30)
[2022-09-06] MEDS ORDERED: PHENAZOPYRIDINE HCL 200 MG TABLET PO ONE (16:30)
[2022-09-06] MEDS ORDERED: DICY20TA2 PO (17:35)
[2022-09-06] MEDS ORDERED: CEFU500T67 PO (17:35)
[2022-09-06] MEDS ORDERED: ONDA4TAB10 PO (17:35)
[2022-09-06 18:01] VITALS: BP 118/87
== END 2022-09-06 18:02 | disposition home or self-care (01) ==
LOC: EDH 13:39
DX: N39.0 Urinary tract infection, site not specified (principal); E11.65 Type 2 diabetes mellitus with hyperglycemia; E11.9 Type 2 diabetes mellitus without complications; Z90.49 Acquired absence of other specified parts of digestive tract
CPT/HCPCS: 99284; 96374; 96361; 96375; 80053; 82803; 83690; 85025; 87040 ×2; 87077 ×2; 87088; 87186 ×2; 82948; 83605; 82010; 81001; 81025; 36415; 36600; 96372; J1815; J7030; J0696; J2405; J1885

== ENCOUNTER 2022-11-12 12:05 | Emergency (ER) | payer MEDICAID ==
[~2022-11-12] VITALS: Ht 154.9 cm; Wt 60.8 kg
[~2022-11-12 12:05] MED LIST changes: +CEFU500T67 PO; +DICY20TA2 PO
[2022-11-12] MEDS ORDERED: SOLU-MEDROL 125MG VIAL IM ONE (13:00)
[2022-11-12] MEDS ORDERED: 0.9%NACL 1000ML 500 ML IV ONE (13:00)
[2022-11-12] MEDS ORDERED: FAMOTIDINE 20MG TAB PO ONE (13:00)
[2022-11-12] MEDS ORDERED: DiphenhydrAMINE HCL 50 MG/ML VIAL IV ONE (13:00)
[2022-11-12] MEDS ORDERED: AZIT250T9 PO (14:15)
[2022-11-12] MEDS ORDERED: D-ME118S47 PO (14:15)
[2022-11-12] MEDS ORDERED: BENZ200C53 PO (14:15)
[2022-11-12 14:47] VITALS: BP 141/89
== END 2022-11-12 14:49 | disposition home or self-care (01) ==
LOC: EDH 12:05
DX: R05.9 Cough, unspecified (principal); L50.0 Allergic urticaria; E10.9 Type 1 diabetes mellitus without complications; F17.200 Nicotine dependence, unspecified, uncomplicated; Z20.822 Contact with and (suspected) exposure to COVID-19; Z79.52 Long term (current) use of systemic steroids; Z90.49 Acquired absence of other specified parts of digestive tract
CPT/HCPCS: 99284; 96374; 87635; 87804 ×2; 96372; C9803; J1200; J7030; J2930

== ENCOUNTER 2023-01-02 10:36 | Emergency (ER) | payer MEDICAID ==
[~2023-01-02] VITALS: Ht 154.9 cm; Wt 63.0 kg
[~2023-01-02 10:36] MED LIST changes: +AZIT250T9 PO; +BENZ200C53 PO; +D-ME118S47 PO
[2023-01-02 10:40] VITALS: BP 156/87
[2023-01-02 11:31] LABS: BASOPHILS % (AUTO) 0.5 % (0.0-5.0); EOSINOPHILS % (AUTO) 0.8 % (0.0-8.0); HEMATOCRIT 41.8 % (36-48); LYMPHOCYTES % (AUTO) 26.6 % (21.0-51.0); MEAN CORPUSCULAR HEMOGLOBIN 24.9 pg (27.0-33.0); MEAN CORPUSCULAR HGB CONC 31.1 g/dL (32.0-36.0); MEAN CORPUSCULAR VOLUME 79.9 fL (79-99); MONOCYTES % (AUTO) 8.2 % (3.0-13.0); NEUTROPHILS % (AUTO) 63.6 % (40.0-77.0); PLATELET COUNT (AUTO) 345 K/uL (130-400); RED BLOOD CELL COUNT(AUTO) 5.23 MIL/uL (4.00-5.50); RED CELL DISTRIBUTION WIDTH 14.4 % (11.0-15.5); WHITE BLOOD COUNT (AUTO) 6.4 K/uL (4.8-10.8)
[2023-01-02 11:42] LABS: CREATININE 0.8 mg/dL (0.5-1.5); POTASSIUM 4.6 mmol/L (3.5-5.1)
[2023-01-02 11:47] LABS: ALBUMIN 3.5 g/dL (3.5-5.0); TOTAL PROTEIN, SERUM 8.1 g/dL (6.0-8.3)
[2023-01-02] MEDS ORDERED: CYCL5TAB PO (11:59)
[2023-01-02] MEDS ORDERED: BACI1CAP6 PO (11:59)
[2023-01-02] MEDS ORDERED: KETOROLAC 30MG VIAL (30MG/ML) IM ONE (13:30)
== END 2023-01-02 14:22 | disposition home or self-care (01) ==
LOC: EDH 10:36
DX: S29.012A Strain of muscle and tendon of back wall of thorax, initial encounter (principal); R19.7 Diarrhea, unspecified; E11.9 Type 2 diabetes mellitus without complications; Z79.899 Other long term (current) drug therapy; Z98.890 Other specified postprocedural states; F17.200 Nicotine dependence, unspecified, uncomplicated; X58.XXXA Exposure to other specified factors, initial encounter; Y93.89 Activity, other specified; Y92.89 Other specified places as the place of occurrence of the external cause; Y99.8 Other external cause status
CPT/HCPCS: 99283; 80053; 85025; 36415; 96372; J1885

== ENCOUNTER 2023-02-11 20:01 | Emergency (ER) | payer MEDICAID ==
[~2023-02-11] VITALS: Ht 154.9 cm; Wt 62.6 kg
[~2023-02-11 20:01] MED LIST changes: +BACI1CAP6 PO; +CYCL5TAB PO
[2023-02-11 20:35] VITALS: BP 137/86
[2023-02-11] MEDS ORDERED: OSEL75 PO (22:16)
[2023-02-11] MEDS ORDERED: AZIT250T9 PO (22:16)
[2023-02-11] MEDS ORDERED: BENZ200C53 PO (22:16)
== END 2023-02-11 22:31 | disposition home or self-care (01) ==
LOC: EDH 20:01
DX: J10.1 Influenza due to other identified influenza virus with other respiratory manifestations (principal); R05.9 Cough, unspecified; E11.9 Type 2 diabetes mellitus without complications; F17.200 Nicotine dependence, unspecified, uncomplicated; Z20.822 Contact with and (suspected) exposure to COVID-19; Z90.49 Acquired absence of other specified parts of digestive tract; Z98.890 Other specified postprocedural states; Z79.899 Other long term (current) drug therapy
CPT/HCPCS: 71045; 87426; 87804; 87880

== ENCOUNTER 2023-04-05 12:19 | Emergency (ER) | payer MEDICAID ==
[~2023-04-05] VITALS: Ht 154.9 cm; Wt 65.8 kg
[~2023-04-05 12:19] MED LIST changes: +OSEL75 PO
[2023-04-05 12:24] VITALS: BP 145/72
[2023-04-05 12:59] LABS: BASOPHILS % (AUTO) 0.1 % (0.0-5.0); EOSINOPHILS % (AUTO) 0.8 % (0.0-8.0); HEMATOCRIT 31.5 % (36-48); LYMPHOCYTES % (AUTO) 21.9 % (21.0-51.0); MEAN CORPUSCULAR HEMOGLOBIN 26.1 pg (27.0-33.0); MEAN CORPUSCULAR HGB CONC 32.1 g/dL (32.0-36.0); MEAN CORPUSCULAR VOLUME 81.4 fL (79-99); NEUTROPHILS % (AUTO) 66.9 % (40.0-77.0); PLATELET COUNT (AUTO) 427 K/uL (130-400); RED BLOOD CELL COUNT(AUTO) 3.87 MIL/uL (4.00-5.50); RED CELL DISTRIBUTION WIDTH 15.9 % (11.0-15.5); WHITE BLOOD COUNT (AUTO) 7.2 K/uL (4.8-10.8)
[2023-04-05 13:18] LABS: CREATININE 0.7 mg/dL (0.5-1.5); POTASSIUM 3.5 mmol/L (3.5-5.1)
[2023-04-05 13:23] LABS: ALBUMIN 2.9 g/dL (3.5-5.0); TOTAL PROTEIN, SERUM 7.1 g/dL (6.0-8.3)
[2023-04-05] MEDS ORDERED: HYDROCODONE/ACETAMINOPHEN 5/325 MG TAB PO ONE (14:30)
[2023-04-05] MEDS ORDERED: KETOROLAC 30MG VIAL (30MG/ML) IM ONE (14:30)
[2023-04-05] MEDS ORDERED: CEPHALEXIN 500 MG CAPSULE PO ONE (14:30)
[2023-04-05 14:37] LABS: APPEARANCE,URINE CLEAR (CLEAR); BILIRUBIN,URINE NEGATIVE (NEGATIVE); COLOR,URINE YELLOW (YELLOW); GLUCOSE, URINE (UA) 500 mg/dL (NEGATIVE); KETONES,URINE 5 mg/dL (NEGATIVE); LEUKOCYTE ESTERASE ,URINE 250 Leu/uL (NEGATIVE); NITRATE,URINE NEGATIVE (NEGATIVE); OCCULT BLOOD,URINE NEGATIVE (NEGATIVE); PROTEIN,URINE 100 mg/dL (NEGATIVE); UROBILINOGEN,URINE 0.2 mg/dL (0.2-1.0)
[2023-04-05] MEDS ORDERED: MUPI22OI2 TP (14:42)
[2023-04-05] MEDS ORDERED: IBUP-2070 PO (14:42)
[2023-04-05] MEDS ORDERED: CEPH500C2 PO (14:42)
[2023-04-05 14:43] LABS: HCG,QUALITATIVE URINE NEGATIVE (NEGATIVE)
[2023-04-05 14:44] LABS: BACTERIA,URINE FEW /HPF (None Seen); MUCUS,URINE FEW LPF (None Seen); SQUAMOUS EPITHELIAL CELL,UR RARE /HPF (0-2); WBC,URINE 26-50 /HPF (0-1)
== END 2023-04-05 15:25 | disposition home or self-care (01) ==
LOC: EDH 12:19
DX: N39.0 Urinary tract infection, site not specified (principal); L03.012 Cellulitis of left finger; E11.9 Type 2 diabetes mellitus without complications; F17.200 Nicotine dependence, unspecified, uncomplicated; Z59.00 Homelessness unspecified; Z59.7 Insufficient social insurance and welfare support; Z79.4 Long term (current) use of insulin; Z90.49 Acquired absence of other specified parts of digestive tract
CPT/HCPCS: 99283; 96374; 80053; 85025; 87088; 81001; 81025; 36415; J1885

== ENCOUNTER 2023-04-25 15:34 | Emergency (ER) | payer MEDICAID ==
[~2023-04-25] VITALS: Ht 154.9 cm; Wt 65.8 kg
[~2023-04-25 15:34] MED LIST changes: +CEPH500C2 PO; +IBUP-2070 PO; +MUPI22OI2 TP
[2023-04-25 15:38] VITALS: BP 138/83; PULSE 89; RESP 16
[2023-04-25] MEDS ORDERED: IBUPROFEN 800 MG TAB ONE (17:08)
[2023-04-25] MEDS ORDERED: IBUPROFEN 800 MG TAB PO ONE (17:30)
[2023-04-25 17:40] LABS: BASOPHILS % (AUTO) 0.3 % (0.0-5.0); EOSINOPHILS % (AUTO) 1.1 % (0.0-8.0); HEMATOCRIT 31.7 % (36-48); LYMPHOCYTES % (AUTO) 23.8 % (21.0-51.0); MEAN CORPUSCULAR HEMOGLOBIN 25.2 pg (27.0-33.0); MEAN CORPUSCULAR HGB CONC 31.2 g/dL (32.0-36.0); MEAN CORPUSCULAR VOLUME 80.7 fL (79-99); MONOCYTES % (AUTO) 8.5 % (3.0-13.0); NEUTROPHILS % (AUTO) 65.9 % (40.0-77.0); PLATELET COUNT (AUTO) 268 K/uL (130-400); RED BLOOD CELL COUNT(AUTO) 3.93 MIL/uL (4.00-5.50)
[2023-04-25 17:54] LABS: CREATININE 0.7 mg/dL (0.5-1.5); POTASSIUM 3.6 mmol/L (3.5-5.1)
[2023-04-25 17:59] LABS: ALBUMIN 2.7 g/dL (3.5-5.0); TOTAL PROTEIN, SERUM 6.6 g/dL (6.0-8.3)
== END 2023-04-25 18:05 | disposition home or self-care (01) ==
LOC: EDH 15:34
DX: S21.051A Open bite of right breast, initial encounter (principal); E11.9 Type 2 diabetes mellitus without complications; F17.200 Nicotine dependence, unspecified, uncomplicated; Z79.4 Long term (current) use of insulin; Z90.49 Acquired absence of other specified parts of digestive tract; W54.0XXA Bitten by dog, initial encounter; Y93.89 Activity, other specified; Y92.89 Other specified places as the place of occurrence of the external cause; Y99.8 Other external cause status
CPT/HCPCS: 36415; 80053; 83605; 85025

== ENCOUNTER 2023-06-18 10:20 | Emergency (ER) | payer MEDICAID ==
[~2023-06-18] VITALS: Ht 154.9 cm; Wt 59.0 kg
[2023-06-18] MEDS ORDERED: KETOROLAC 30MG VIAL (30MG/ML) IVP ONE (11:30)
[2023-06-18] MEDS ORDERED: 0.9%NACL 1000ML 1,000 ML IV ONE (11:30)
[2023-06-18] MEDS ORDERED: METOCLOPRAMIDE 10 MG/2 ML VIAL IVP ONE (11:30)
[2023-06-18] MEDS ORDERED: FAMOTIDINE 20MG VIAL IV ONE (11:30)
[2023-06-18 12:11] LABS: BASOPHILS # (AUTO) 0.02 K/uL (0.00-0.20); BASOPHILS % (AUTO) 0.2 % (0.0-5.0); EOSINOPHILS # (AUTO) 0.01 K/uL (0.00-0.70); EOSINOPHILS % (AUTO) 0.1 % (0.0-8.0); HEMATOCRIT 38.1 % (36-48); IMMATURE GRANULOCYTE ABSOLUTE 0.04 K/uL (0-1); LYMPHOCYTES # (AUTO) 1.7 K/uL (1.0-4.8); LYMPHOCYTES % (AUTO) 19.1 % (21.0-51.0); MEAN CORPUSCULAR HGB CONC 31.2 g/dL (32.0-36.0); MONOCYTES # (AUTO) 0.6 K/uL (0.1-1.0); MONOCYTES % (AUTO) 6.9 % (3.0-13.0); NEUTROPHILS # (AUTO) 6.5 K/uL (1.8-7.7); NEUTROPHILS % (AUTO) 73.2 % (40.0-77.0); PLATELET COUNT (AUTO) 364 K/uL (130-400); RED BLOOD CELL COUNT(AUTO) 4.95 MIL/uL (4.00-5.50); RED CELL DISTRIBUTION WIDTH 16.1 % (11.0-15.5); WHITE BLOOD COUNT (AUTO) 8.8 K/uL (4.8-10.8)
[2023-06-18 12:19] LABS: CREATININE 0.6 mg/dL (0.5-1.5); POTASSIUM 4.5 mmol/L (3.5-5.1)
[2023-06-18 12:23] LABS: ALBUMIN 3.5 g/dL (3.5-5.0); BILIRUBIN,TOTAL 0.2 mg/dL (0.2-1.0); MAGNESIUM 1.6 mg/dL (1.80-2.40); TOTAL PROTEIN, SERUM 8.5 g/dL (6.0-8.3)
[2023-06-18] MEDS ORDERED: ONDA4TAB10 PO (13:35)
[2023-06-18 14:03] VITALS: BP 128/74; PULSE 87; RESP 18; O2SAT 99
[2023-06-18 14:27] LABS: APPEARANCE,URINE CLEAR (CLEAR); BILIRUBIN,URINE NEGATIVE (NEGATIVE); COLOR,URINE LIGHT-YELLOW (YELLOW); GLUCOSE, URINE (UA) >=1000 mg/dL (NEGATIVE); KETONES,URINE NEGATIVE (NEGATIVE); LEUKOCYTE ESTERASE ,URINE NEGATIVE Leu/uL (NEGATIVE); NITRATE,URINE NEGATIVE (NEGATIVE); OCCULT BLOOD,URINE NEGATIVE (NEGATIVE); PH,URINE 6.5 (5.0-8.0); PROTEIN,URINE 100 mg/dL (NEGATIVE); UROBILINOGEN,URINE 0.2 mg/dL (0.2-1.0)
[2023-06-18 14:34] LABS: ADD UA MICROSCOPIC YES
[2023-06-18 14:55] LABS: MUCUS,URINE RARE LPF (None Seen); RBC,URINE 0-1 /HPF (0-1); WBC,URINE 0-1 /HPF (0-1)
== END 2023-06-18 14:20 | disposition home or self-care (01) ==
LOC: EDH 10:20
DX: A08.4 Viral intestinal infection, unspecified (principal); E11.9 Type 2 diabetes mellitus without complications; F17.200 Nicotine dependence, unspecified, uncomplicated; Z90.49 Acquired absence of other specified parts of digestive tract; Z79.899 Other long term (current) drug therapy; Z98.890 Other specified postprocedural states
CPT/HCPCS: 99285; 96374; 96361; 96375; 83735; 84484; 80053; 83690; 85025; 81001; 36415; 74018; 93005; J7030; J1885; J2765; S0028; J3490

== ENCOUNTER 2023-09-05 19:25 | Emergency (ER) | payer MEDICAID, OTHER ==
[~2023-09-05 19:25] MED LIST changes: +BROM118S48 PO; -D-ME118S47 PO
[2023-09-05] MEDS ORDERED: IBUP-1493 PO (22:01)
[2023-09-05] MEDS ORDERED: PRED20TA3 PO (22:01)
[2023-09-05] MEDS ORDERED: GUAI1TBM19 PO (22:01)
[2023-09-05] MEDS ORDERED: ALBU90AE2 IH (22:01)
== END 2023-09-05 20:48 | disposition left against medical advice (07) ==
LOC: EDH 19:25
DX: M79.10 Myalgia, unspecified site (principal); Z53.21 Procedure and treatment not carried out due to patient leaving prior to being seen by health care provider

== ENCOUNTER 2023-09-05 21:39 | Emergency (ER) | payer OTHER ==
[~2023-09-05] VITALS: Ht 170.2 cm; Wt 61.7 kg
[2023-09-05] MEDS ORDERED: ALBU90AE2 IH (22:01)
[2023-09-05] MEDS ORDERED: PRED20TA3 PO (22:01)
[2023-09-05] MEDS ORDERED: GUAI1TBM19 PO (22:01)
[2023-09-05] MEDS ORDERED: IBUP-1493 PO (22:01)
[2023-09-05 22:16] LABS: RAPID GROUP A STREP negative (NEGATIVE)
[2023-09-05 22:24] LABS: SARS-CoV-2, RNA, NAAT NEGATIVE SARS CoV-2 (NEGATIVE)
[2023-09-05 22:27] LABS: INFLUENZA TYPE A Negative For Type A (NEGATIVE); INFLUENZA TYPE B Negative For Type B (NEGATIVE)
[2023-09-05] MEDS ORDERED: IBUPROFEN 800 MG TAB PO ONE (22:30)
[2023-09-05] MEDS ORDERED: PREDNISONE 20 MG TABLET PO ONE (22:30)
[2023-09-05 23:39] VITALS: BP 127/87; PULSE 68; RESP 18; O2SAT 98
== END 2023-09-05 23:42 | disposition home or self-care (01) ==
LOC: EDH 21:39
DX: B34.9 Viral infection, unspecified (principal); J20.9 Acute bronchitis, unspecified; E11.9 Type 2 diabetes mellitus without complications; Z20.822 Contact with and (suspected) exposure to COVID-19; Z79.899 Other long term (current) drug therapy; Z98.890 Other specified postprocedural states; Z90.49 Acquired absence of other specified parts of digestive tract
CPT/HCPCS: 99283; 87635; 87880; 87804 ×2; C9803

== ENCOUNTER 2023-09-13 13:52 | Emergency (ER) | payer OTHER ==
[~2023-09-13] VITALS: Ht 157.5 cm; Wt 59.0 kg
[~2023-09-13 13:52] MED LIST changes: +ALBU90AE2 IH; +GUAI1TBM19 PO; +IBUP-1493 PO; +PRED20TA3 PO
[2023-09-13 15:25] LABS: RAPID GROUP A STREP negative (NEGATIVE)
[2023-09-13 15:27] LABS: SARS-CoV-2, RNA, NAAT NEGATIVE SARS CoV-2 (NEGATIVE)
[2023-09-13 15:36] LABS: INFLUENZA TYPE A Negative For Type A (NEGATIVE); INFLUENZA TYPE B Negative For Type B (NEGATIVE)
[2023-09-13] MEDS ORDERED: 0.9%NACL 1000ML 1,000 ML IV ONE (16:00)
[2023-09-13 16:47] LABS: BASOPHILS # (AUTO) 0.03 K/uL (0.00-0.20); BASOPHILS % (AUTO) 0.3 % (0.0-5.0); EOSINOPHILS # (AUTO) 0.01 K/uL (0.00-0.70); EOSINOPHILS % (AUTO) 0.1 % (0.0-8.0); HEMATOCRIT 42.1 % (36-48); IMMATURE GRANULOCYTE ABSOLUTE 0.05 K/uL (0-1); LYMPHOCYTES # (AUTO) 1.7 K/uL (1.0-4.8); LYMPHOCYTES % (AUTO) 17.2 % (21.0-51.0); MEAN CORPUSCULAR VOLUME 84.7 fL (79-99); MONOCYTES # (AUTO) 0.9 K/uL (0.1-1.0); MONOCYTES % (AUTO) 8.7 % (3.0-13.0); NEUTROPHILS # (AUTO) 7.3 K/uL (1.8-7.7); NEUTROPHILS % (AUTO) 73.2 % (40.0-77.0); PLATELET COUNT (AUTO) 365 K/uL (130-400); RED BLOOD CELL COUNT(AUTO) 4.97 MIL/uL (4.00-5.50); RED CELL DISTRIBUTION WIDTH 16.2 % (11.0-15.5)
[2023-09-13 17:02] LABS: ALBUMIN 3.2 g/dL (3.5-5.0); BILIRUBIN,TOTAL 0.3 mg/dL (0.2-1.0); CREATININE 0.8 mg/dL (0.5-1.5); POTASSIUM 3.8 mmol/L (3.5-5.1); TOTAL PROTEIN, SERUM 8.8 g/dL (6.0-8.3)
[2023-09-13] MEDS ORDERED: ACETAMINOPHEN 325 MG TAB PO ONE (17:30)
[2023-09-13 18:16] LABS: APPEARANCE,URINE CLEAR (CLEAR); BILIRUBIN,URINE NEGATIVE (NEGATIVE); COLOR,URINE COLORLESS (YELLOW); GLUCOSE, URINE (UA) >=1000 mg/dL (NEGATIVE); KETONES,URINE 150 mg/dL (NEGATIVE); LEUKOCYTE ESTERASE ,URINE NEGATIVE Leu/uL (NEGATIVE); NITRATE,URINE NEGATIVE (NEGATIVE); OCCULT BLOOD,URINE SMALL (NEGATIVE); PROTEIN,URINE 70 mg/dL (NEGATIVE); UROBILINOGEN,URINE 0.2 mg/dL (0.2-1.0)
[2023-09-13 18:17] LABS: ADD UA MICROSCOPIC YES
[2023-09-13 18:18] LABS: HCG,QUALITATIVE URINE NEGATIVE (NEGATIVE)
[2023-09-13 18:38] LABS: SQUAMOUS EPITHELIAL CELL,UR RARE /HPF (0-2); WBC,URINE 0-1 /HPF (0-1)
[2023-09-13] MEDS ORDERED: KETOROLAC 30MG VIAL (30MG/ML) IVP ONE (19:00)
[2023-09-13] MEDS ORDERED: IOHEXOL-350 75 ML VIAL IV ONE (20:16)
[2023-09-13 20:34] LABS: AMPHET/METH SCREEN,URINE NEGATIVE (NEGATIVE); BARBITURATE SCREEN, URINE NEGATIVE (NEGATIVE); BENZODIAZEPINES SCREEN,URINE POSITIVE (NEGATIVE); CANNABINOID SCREEN,URINE POSITIVE (NEGATIVE); COCAINE SCREEN,URINE POSITIVE (NEGATIVE); OPIATE SCREEN,URINE NEGATIVE (NEGATIVE); PHENCYCLIDINE SCREEN,URINE NEGATIVE (NEGATIVE)
[2023-09-13] MEDS ORDERED: AMOX1TAB16 PO (22:10)
[2023-09-13 22:14] VITALS: BP 134/78; PULSE 62; RESP 18; O2SAT 98
== END 2023-09-13 22:25 | disposition home or self-care (01) ==
LOC: EDH 13:52
DX: E11.65 Type 2 diabetes mellitus with hyperglycemia (principal); J06.9 Acute upper respiratory infection, unspecified; K59.00 Constipation, unspecified; F14.10 Cocaine abuse, uncomplicated; F12.10 Cannabis abuse, uncomplicated; F13.10 Sedative, hypnotic or anxiolytic abuse, uncomplicated; E11.9 Type 2 diabetes mellitus without complications; F17.200 Nicotine dependence, unspecified, uncomplicated; Z20.822 Contact with and (suspected) exposure to COVID-19; Z79.899 Other long term (current) drug therapy; Z90.49 Acquired absence of other specified parts of digestive tract; Z98.890 Other specified postprocedural states
CPT/HCPCS: 99285; 74177; 96374; 96361; 87635; 80053; 80305; 83690; 85025; 87880; 87804 ×2; 82948; 83605; 82010; 81025; 36415; 81001; C9803; J7030; J1885; Q9967

== ENCOUNTER 2024-03-09 01:17 | Emergency (ER) | payer OTHER ==
[~2024-03-09] VITALS: Ht 154.9 cm; Wt 68.0 kg
[~2024-03-09 01:17] MED LIST changes: -ALBU90AE2 IH; +ALBU90AE3 IH; +AMOX1TAB16 PO; +ONDA-243 PO; -ONDA4TAB10 PO
[2024-03-09 02:30] LABS: APPEARANCE,URINE CLEAR (CLEAR); BILIRUBIN,URINE NEGATIVE (NEGATIVE); COLOR,URINE COLORLESS (YELLOW); GLUCOSE, URINE (UA) >=1000 mg/dL (NEGATIVE); KETONES,URINE NEGATIVE (NEGATIVE); LEUKOCYTE ESTERASE ,URINE 25 Leu/uL (NEGATIVE); NITRATE,URINE NEGATIVE (NEGATIVE); OCCULT BLOOD,URINE NEGATIVE (NEGATIVE); PROTEIN,URINE 30 mg/dL (NEGATIVE); UROBILINOGEN,URINE 0.2 mg/dL (0.2-1.0)
[2024-03-09 02:31] LABS: ADD UA MICROSCOPIC YES
[2024-03-09 02:32] LABS: SQUAMOUS EPITHELIAL CELL,UR RARE /HPF (0-2); WBC,URINE 26-50 /HPF (0-1)
[2024-03-09 02:35] LABS: HCG,QUALITATIVE URINE NEGATIVE (NEGATIVE)
[2024-03-09 02:37] LABS: BASOPHILS # (AUTO) 0.02 K/uL (0.00-0.20); BASOPHILS % (AUTO) 0.3 % (0.0-5.0); EOSINOPHILS # (AUTO) 0.12 K/uL (0.00-0.70); EOSINOPHILS % (AUTO) 1.7 % (0.0-8.0); HEMATOCRIT 36.4 % (36-48); IMMATURE GRANULOCYTE ABSOLUTE 0.02 K/uL (0-1); LYMPHOCYTES # (AUTO) 2.2 K/uL (1.0-4.8); LYMPHOCYTES % (AUTO) 30.9 % (21.0-51.0); MEAN CORPUSCULAR HEMOGLOBIN 28.3 pg (27.0-33.0); MEAN CORPUSCULAR HGB CONC 33.2 g/dL (32.0-36.0); MEAN CORPUSCULAR VOLUME 85.2 fL (79-99); MONOCYTES # (AUTO) 0.9 K/uL (0.1-1.0); MONOCYTES % (AUTO) 12.4 % (3.0-13.0); NEUTROPHILS # (AUTO) 3.8 K/uL (1.8-7.7); NEUTROPHILS % (AUTO) 54.4 % (40.0-77.0); PLATELET COUNT (AUTO) 344 K/uL (130-400); RED BLOOD CELL COUNT(AUTO) 4.27 MIL/uL (4.00-5.50); RED CELL DISTRIBUTION WIDTH 14.7 % (11.0-15.5)
[2024-03-09] MEDS: KETOROLAC 15MG/ML VIAL (15MG/ML) IV ONE (02:47)
[2024-03-09 02:54] LABS: BILIRUBIN,TOTAL 0.2 mg/dL (0.2-1.0); CREATININE 0.9 mg/dL (0.5-1.0); POTASSIUM 4.8 mmol/L (3.5-5.1); TOTAL PROTEIN, SERUM 7.7 g/dL (6.0-8.3)
[2024-03-09] MEDS: INSULIN HUMULIN R 100 UNIT/ML 3ML IV ONE (03:25)
[2024-03-09] MEDS ORDERED: POLY510P31 PO (03:26)
[2024-03-09 03:33] VITALS: BP 138/77; PULSE 80; RESP 16; O2SAT 100
[2024-03-09] MEDS: POLYETHYLENE GLYCOL 3350 17 GM POWD.PACK ONE (03:46)
== END 2024-03-09 03:56 | disposition home or self-care (01) ==
LOC: EDH 01:17
DX: K59.00 Constipation, unspecified (principal); E86.0 Dehydration; E11.65 Type 2 diabetes mellitus with hyperglycemia; F17.200 Nicotine dependence, unspecified, uncomplicated; Z79.899 Other long term (current) drug therapy; Z98.890 Other specified postprocedural states; Z90.49 Acquired absence of other specified parts of digestive tract
CPT/HCPCS: 99284; 96374; 96375; 80053; 83690; 85025; 87077; 87088; 87186; 81001; 81025; 36415; 74021; J1815; J1885

== ENCOUNTER 2024-07-14 13:18 | Emergency (ER) | payer SELFPAY ==
[~2024-07-14] VITALS: Ht 165.1 cm; Wt 64.4 kg
[~2024-07-14 13:18] MED LIST changes: +POLY510P31 PO
[2024-07-14] MEDS: CLINDAMYCIN 150 MG CAP PO ONE (13:52)
[2024-07-14 14:03] LABS: CREATININE 0.8 mg/dL (0.5-1.0)
[2024-07-14 14:04] LABS: BASOPHILS # (AUTO) 0.02 K/uL (0.00-0.20); BASOPHILS % (AUTO) 0.3 % (0.0-5.0); EOSINOPHILS # (AUTO) 0.02 K/uL (0.00-0.70); EOSINOPHILS % (AUTO) 0.3 % (0.0-8.0); HEMATOCRIT 35.2 % (36-48); IMMATURE GRANULOCYTE ABSOLUTE 0.02 K/uL (0-1); LYMPHOCYTES # (AUTO) 1.2 K/uL (1.0-4.8); LYMPHOCYTES % (AUTO) 18.6 % (21.0-51.0); MEAN CORPUSCULAR HEMOGLOBIN 27.5 pg (27.0-33.0); MEAN CORPUSCULAR HGB CONC 32.1 g/dL (32.0-36.0); MEAN CORPUSCULAR VOLUME 85.6 fL (79-99); MONOCYTES # (AUTO) 0.6 K/uL (0.1-1.0); MONOCYTES % (AUTO) 8.7 % (3.0-13.0); NEUTROPHILS # (AUTO) 4.8 K/uL (1.8-7.7); NEUTROPHILS % (AUTO) 71.8 % (40.0-77.0); PLATELET COUNT (AUTO) 378 K/uL (130-400); RED BLOOD CELL COUNT(AUTO) 4.11 MIL/uL (4.00-5.50); RED CELL DISTRIBUTION WIDTH 14.6 % (11.0-15.5); WHITE BLOOD COUNT (AUTO) 6.7 K/uL (4.8-10.8)
[2024-07-14 15:58] VITALS: BP 164/88; PULSE 80; RESP 16; TEMP 97.9; O2SAT 100
[2024-07-14] MEDS ORDERED: CLIN-141 PO (16:13)
== END 2024-07-14 16:18 | disposition home or self-care (01) ==
LOC: EDH 13:18
DX: L03.032 Cellulitis of left toe (principal); E11.65 Type 2 diabetes mellitus with hyperglycemia; F17.200 Nicotine dependence, unspecified, uncomplicated; Z79.1 Long term (current) use of non-steroidal anti-inflammatories (NSAID); Z79.4 Long term (current) use of insulin; Z90.49 Acquired absence of other specified parts of digestive tract; Z98.890 Other specified postprocedural states
CPT/HCPCS: 36415; 73630; 80048; 85025

== ENCOUNTER 2025-01-25 21:11 | Emergency (ER) | payer BC ==
[~2025-01-25] VITALS: Ht 154.9 cm; Wt 66.7 kg
[~2025-01-25 21:11] MED LIST changes: +CLIN-141 PO; -CYCL5TAB PO; +CYCL5TAB3 PO
--- NOTE | 2025-01-25 21:13 | NUR ---
COVID, FLU AND STREP SWABS COLLECTED AND SENT
[2025-01-25 21:30] LABS: RAPID GROUP A STREP negative (NEGATIVE)
[2025-01-25 21:32] LABS: SARS-CoV-2, RNA, NAAT NEGATIVE SARS CoV-2 (NEGATIVE)
[2025-01-25 21:37] LABS: INFLUENZA TYPE A Negative For Type A (NEGATIVE); INFLUENZA TYPE B Negative For Type B (NEGATIVE)
--- NOTE | 2025-01-25 22:47 | ERN ---
General Chief Complaint: Cough Stated Complaint: COUGH, BODYACHES Time Seen by MD: 21:22 Source: patient History of Present Illness Initial Comments Patient states that she has had a cold and a cough with body aches for one week. As well as diffuse abdominal pain and nausea. She does have a history of diabetic ketoacidosis admissions and her symptoms feel a little bit like this. She reports positive fevers and chills. She is urinating normally defecating normally. Allergies: Coded Allergies: No Known Drug Allergies (Unverified Allergy, Unknown, 11/30/19) Home Meds Active Scripts Clindamycin HCl (Clindamycin HCl) 300 Mg Capsule, 1 CAP PO QID for 10 Days, #40 CAP 0 Refills Prov:RON CRISOSTOMO [employer]EC[employer] DIRECTOR 07/14/24 Polyethylene Glycol 3350 ([id number]) 17 Gram/Dose Powder, 20 GM PO TID for constipation, #400 APPL Prov:RICK ERICKSON DO 03/09/24 Amoxicillin/Potassium Clav (Amox Tr-K Clv 875-125 mg Tab) 875 Mg-125 Mg Tablet, 1 EACH PO BID for 10 Days, #20 TAB Prov:TONY SANCHEZ REEL SLITTER 09/13/23 Albuterol Sulfate (Proair Digihaler) 90 Mcg Aer.pw.bas, 2 PUFF IH QID, #1 UNIT Prov:DUNG DE GUZMAN MD 09/05/23 Guaifenesin/Dextromethorphan (Mucinex Dm ER 1,200-60 mg Tab) 1,200 Mg-60 Mg Tbmp.12hr, 1 EACH PO BID, #20 TAB Prov:DUNG DE GUZMAN MD 09/05/23 Ibuprofen (Motrin/Advil) 800 Mg Tab, 800 MG PO TID, #30 TAB Prov:DUNG DE GUZMAN MD 09/05/23 Prednisone (Prednisone) 20 Mg Tablet, 1 TAB PO AD for 6 Days, #14 TAB 0 Refills TAKE 3 TAB BY MOUTH daily X3 DAYS, THEN TAKE 2 TAB BY MOUTH daily X2 DAYS, THEN TAKE 1 TAB BY MOUTH ONCE A DAY X1 DAY. Prov:DUNG DE GUZMAN MD 09/05/23 Ondansetron (Ondansetron Odt) 4 Mg Tab.rapdis, 4 MG PO Q6HPRN PRN for nausea, #16 TAB 0 Refills Prov:JILL BOSS Sr., MD 06/18/23 Mupirocin (Mupirocin Ointment) 22 Gm Oint, 1 APPL TP BID for 10 Days, #30 G Prov:JUDITH SANCHEZ 04/05/23 Cephalexin (Cephalexin) 500 Mg Capsule, 500 MG PO TID for 10 Days, #30 CAP Prov:JUDITH SANCHEZ 04/05/23 Ibuprofen (Ibuprofen) 600 Mg Tablet, 600 MG PO Q6H PRN for PAIN, #15 TAB Prov:JUDITH SANCHEZ 04/05/23 Azithromycin (Azithromycin) 250 Mg Tablet, 250 MG PO DAILY for 5 Days, #6 TAB Take 2 now then 1 daily until complete Prov:PAUL GOODWINP 02/11/23 Benzonatate (Benzonatate) 200 Mg Capsule, 200 MG PO TID PRN for COUGH for 14 Days, #42 CAP Prov:PAUL GOODWINP 02/11/23 Oseltamivir Phosphate (Tamiflu) 75 Mg Cap, 75 MG PO BID for 5 Days, #10 CAP Prov:PAUL GOODWIN [facility] 02/11/23 Bacillus Coagulans (Probiotic) 1 Each Capsule.dr, 1 EACH PO DAILY, #30 CAP Prov:MARIAMA GEP 01/02/23 Cyclobenzaprine HCl (Cyclobenzaprine HCl) 5 Mg Tablet, 5 MG PO TID PRN for MUSCLE SPASMS, #15 TAB Prov:MARIAMA GEP 01/02/23 D-Methorphan Hb/P-Epd HCl/Bpm (Bromfed Dm Cough Syrup) 118 Ml Syrup, 10 ML PO Q4HPRN PRN for COUGH for 10 Days, #100 ML Prov:PAUL GOODWINP 11/12/22 Benzonatate (Benzonatate) 200 Mg Capsule, 200 MG PO TID PRN for COUGH for 14 Days, #42 CAP Prov:PAUL GOODWINP 11/12/22 Azithromycin (Azithromycin) 250 Mg Tablet, 250 MG PO DAILY for 5 Days, #6 TAB Take 2 now then 1 daily until complete Prov:PAUL GOODWIN 11/12/22 Ondansetron (Ondansetron Odt) 4 Mg Tab.rapdis, 4 MG PO TID, #21 TAB Prov:DARCI HEMPHILL 09/06/22 Dicyclomine HCl (Bentyl) 20 Mg Tab, 20 MG PO QID, #28 TAB Prov:DARCI HEMPHILL 09/06/22 Cefuroxime Axetil (Cefuroxime) 500 Mg Tablet, 500 MG PO BID for 10 Days, #20 TAB Prov:DARCI HEMPHILL 09/06/22 Cephalexin Monohydrate (Keflex) 500 Mg Cap, 500 MG PO TID, #21 CAP Prov:MARIAMA GE 06/13/22 Ondansetron (Ondansetron Odt) 4 Mg Tab.rapdis, 4 MG PO TID, #15 TAB 0 Refills Prov:JOSE ROBERTO HILLS MD 04/17/22 Docusate Sodium (Colace) 100 Mg Capsule, 100 MG PO BID for 7 Days, #14 CAP Prov:SAMEER MATHIS 07/18/20 Reported Medications Insulin Glargine,Hum.rec.anlog (Lantus) 100 Units/Ml Inj, 35 UNITS SQ DAILY for 30 Days, ML 06/18/21 Insulin Lispro (Humalog) 100 Unit/1 Ml Insuln.pen, 15 UNITS SQ ACHS, SYRINGE 06/18/21 Past Medical History Past Medical History: Diabetes-Type II, Other Medical History Other: GASTRITIS Past Surgical History: Cholecystectomy, Family History Family History: Negative Social History Social History: Smokers, ETOH, Lives with family, Other Female( History) : 4 Para: 3 Aborts: 1 Constitutional: (+) chills, (+) fever, (+) weakness EENTM: (-) eye pain, (-) blurred vision, (-) tearing, (-) double vision, (-) ear pain, (-) ear discharge, (-) nose pain, (-) nose congestion, (-) throat pain, (-) Throat swelling, (-) mouth pain, (-) tooth pain, (-) mouth swelling, (-) other documentation Respiratory: (+) cough Cardiovascular: (-) chest pain, (-) edema, (-) palpitations, (-) syncope, (-) dyspnea on exertion, (-) other documentation Gastrointestinal/Abdominal: (+) nausea; (-) vomiting, (-) diarrhea, (-) abdominal pain, (-) abdominal distention, (-) constipation, (-) rectal bleeding, (-) dark stool/melena, (-) other documentation Genitourinary: (-) vaginal discharge, (-) vaginal bleeding, (-) dysuria, (-) frequency, (-) hematuria, (-) pain, (-) other documentation Musculoskeletal: (-) Neck pain, (-) back pain, (-) Flank Pain, (-) joint pain, (-) joint swelling, (-) muscle pain, (-) muscle stiffness, (-) gout, (-) other documentation Skin: (-) laceration, (-) contusion, (-) abrasion, (-) abscess, (-) rash, (-) change in color, (-) change in hair, (-) change in nails, (-) diaphoresis, (-) dryness, (-) other documentation Neuro: (-) altered mental status, (-) headache, (-) syncope, (-) paralysis, (-) numbness, (-) seizure, (-) pre-existing deficit, (-) tremors, (-) weakness, (-) dizziness, (-) slurred speech, (-) vertigo, (-) other documentation Physical Exam General Appearance: (+) mild distress Head/Face Trauma: No Eye: bilateral eye normal inspection, bilateral eye PERRL, bilateral eye EOMI Ear, Nose, Throat: (+) hearing grossly normal, (+) normal ENT inspection, (+) moist mucous membraine Neck: (+) normal inspection, (+) supple, (+) full range of motion Respiratory: (+) chest non-tender, (+) lungs clear Heart: (+) regular, (+) no gallop Vascular: (+) no edema Gastrointestinal: (+) soft, (+) non-tender, (+) bowel sound present Back Comment Patient is complaining of bilateral flank pain but it is easily reproduced by palpation of her posterior ribs. Results Laboratory and Microbiology Lab and Micro Result Laboratory Tests Test 01/25/25 21:13 01/25/25 22:57 01/25/25 23:43 Influenza Type A Antigen Negative For Type A Influenza Type B Antigen Negative For Type B SARS-CoV-2, RNA, NAAT NEGATIVE SARS CoV-2 Group A Streptococcus Rapid negative (NEGATIVE) White Blood Count 7.5 K/uL (4.8-10.8) Red Blood Count 4.65 MIL/uL (4.00-5.50) Hemoglobin 13.4 g/dL (12.0-16.0) Hematocrit 41.0 % (36-48) Mean Corpuscular Volume 88.2 fL (79-99) Mean Corpuscular Hemoglobin 28.8 pg (27.0-33.0) Mean Corpuscular Hemoglobin Concent 32.7 g/dL (32.0-36.0) Red Cell Distribution Width 13.7 % (11.0-15.5) Platelet Count 341 K/uL (130-400) Mean Platelet Volume 9.3 fL (7.5-10.5) Immature Granulocyte % (Auto) 0.4 % (0-1) Neutrophils (%) (Auto) 70.8 % (40.0-77.0) Lymphocytes (%) (Auto) 17.1 % (21.0-51.0) L Monocytes (%) (Auto) 9.1 % (3.0-13.0) Eosinophils (%) (Auto) 2.3 % (0.0-8.0) Basophils (%) (Auto) 0.3 % (0.0-5.0) Neutrophils # (Auto) 5.3 K/uL (1.8-7.7) Lymphocytes # (Auto) 1.3 K/uL (1.0-4.8) Monocytes # (Auto) 0.7 K/uL (0.1-1.0) Eosinophils # (Auto) 0.17 K/uL (0.00-0.70) Basophils # (Auto) 0.02 K/uL (0.00-0.20) Absolute Immature Granulocyte (auto 0.03 K/uL (0-1) Nucleated Red Blood Cells 0.0 % (0.0-0.19) Sodium Level 139 mmol/L (136-145) Potassium Level 4.0 mmol/L (3.5-5.1) Chloride Level 99 mmol/L (101-111) L Carbon Dioxide Level 30 mmol/L (21-32) Blood Urea Nitrogen 15 mg/dL (7-18) Creatinine 1.0 mg/dL (0.5-1.0) Glomerular Filtration Rate Calc 75 mL/min (>90) Random Glucose 186 mg/dL (70-105) H Total Calcium 8.9 mg/dL (8.5-10.1) Urine Color YELLOW (YELLOW) Urine Appearance CLOUDY (CLEAR) H Urine pH 6.0 (5.0-8.0) Urine Specific [place] 1.040 (1.001-1.031) Urine Protein 600 mg/dL (NEGATIVE) H Urine Glucose (UA) 200 mg/dL (NEGATIVE) H Urine Ketones 40 mg/dL (NEGATIVE) H Urine Occult Blood LARGE (NEGATIVE) H Urine Nitrate NEGATIVE (NEGATIVE) Urine Bilirubin 0.5 mg/dL (NEGATIVE) H Urine Urobilinogen 2.0 mg/dL (0.2-1.0) H Urine Leukocyte Esterase NEGATIVE López/uL Urine RBC TNTC /HPF (0-1) H Urine WBC 11-25 /HPF (0-1) H Urine Squamous Epithelial Cells FEW /HPF (0-2) Urine Bacteria RARE /HPF (None Seen) Urine Hyaline Casts 2-5 /LPF (0-1 /LPF) H MDM Patient's complaints are consistent with the influenza. Her nasal swabs are negative for influenza a and B, strep and COVID. Given her prior history of admissions for hyperglycemia I will do a quick chemistry panel a UA and a CBC. I will also bolused her some fluid. She has normal. Patient's chemistry panel shows no severe hyperglycemia. Her chloride is a little low, otherwise her BNP is normal. There is blood and sugar in her urine but it is nitrite negative and esterase negative. Patient is having her menses. For her pain I gave her some oral Toradol and some oral Flexeril for her back pain as I think it is mostly musculoskeletal. I explained the lab results to the patient she most likely has a viral infection. I will give her some Tessalon Perles to help with her cough and some azithromycin in case she has a mycoplasma infection. ED Course Orders Procedure Category Date Status Time Covid Rna Naat LAB 01/25/25 Complete 21:13 Influenza Type A & B, LAB 01/25/25 Complete Rapid 21:13 Rapid (Group A Strep) LAB 01/25/25 Complete 21:13 Cbc With Differential LAB 01/25/25 Complete 22:47 Basic Metabolic Panel LAB 01/25/25 Complete 22:47 Lactated Ringers PHA 01/25/25 Complete 1000ml (Lactated 22:47 Urinalysis Profile LAB 01/25/25 Complete 22:47 Cyclobenzaprine Hcl PHA 01/26/25 Complete (Cyclobenzaprine Hcl 00:00 Ketorolac PHA 01/25/25 Complete Tromethamine 00:00 Culture Urine AUGUSTIN 01/26/25 In Process 00:08 Current Medications Medications (Trade) Dose Ordered Sig/Yuniel Route PRN Reason Start Time Stop Time Status Last Admin Dose Admin Cyclobenzaprine HCl (Cyclobenzaprine HCl) 10 mg ONCE ONCE PO 01/26/25 00:00 01/26/25 00:01 DC 01/25/25 23:52 Ketorolac Tromethamine (ketOROlac troMETHamine) 20 mg ONCE ONCE PO 01/25/25 00:00 01/25/25 23:49 DC 01/26/25 00:05 Lactated Ringer's (Lactated Ringers 1000ml) 1,000 ml BOLUS STAT IV 01/25/25 22:47 01/25/25 22:50 DC 01/25/25 23:02 Vital Signs Date Time Temp Pulse Resp B/P (MAP) Pulse Ox O2 Delivery O2 Flow Rate FiO2 01/26/25 00:11 98.1 89 16 128/76 98 Room Air* 0 21 01/25/25 23:47 98.2 115 16 135/72 98 Room Air* 0 21 01/25/25 21:12 99.3 117 20 137/74 99 Room Air DX & DISP Disposition: Discharge Departure Impression: Primary Impression: Acute bronchitis Condition: Stable Scripts Benzonatate (Tessalon Perles) 100 Mg Cap 1 CAP PO TID for cough for 10 Days, #30 CAP 0 Refills Prov: PALLAVI DUKE MD 01/26/25 Azithromycin (Azithromycin) 250 Mg Tablet 1 TAB PO AD for 5 Days, #6 TAB 0 Refills 2 the first day followed by 1 for days 2-5 Prov: PALLAVI DUKE MD 01/26/25 Additional Instructions: Please see your primary care doctor a returned to the ED if you have high fevers or hemoptysis coughing up blood. Referrals: ALE CHUA MD (PCP) PALLAVI DUKE MD Jan 25, 2025 22:47
[2025-01-25] MEDS: LACTATED RINGERS 1000ML IV STA (23:02)
[2025-01-25 23:04] LABS: BASOPHILS # (AUTO) 0.02 K/uL (0.00-0.20); BASOPHILS % (AUTO) 0.3 % (0.0-5.0); EOSINOPHILS # (AUTO) 0.17 K/uL (0.00-0.70); EOSINOPHILS % (AUTO) 2.3 % (0.0-8.0); IMMATURE GRANULOCYTE ABSOLUTE 0.03 K/uL (0-1); LYMPHOCYTES # (AUTO) 1.3 K/uL (1.0-4.8); LYMPHOCYTES % (AUTO) 17.1 % (21.0-51.0); MEAN CORPUSCULAR HEMOGLOBIN 28.8 pg (27.0-33.0); MEAN CORPUSCULAR HGB CONC 32.7 g/dL (32.0-36.0); MEAN CORPUSCULAR VOLUME 88.2 fL (79-99); MONOCYTES # (AUTO) 0.7 K/uL (0.1-1.0); MONOCYTES % (AUTO) 9.1 % (3.0-13.0); NEUTROPHILS # (AUTO) 5.3 K/uL (1.8-7.7); NEUTROPHILS % (AUTO) 70.8 % (40.0-77.0); PLATELET COUNT (AUTO) 341 K/uL (130-400); RED BLOOD CELL COUNT(AUTO) 4.65 MIL/uL (4.00-5.50); RED CELL DISTRIBUTION WIDTH 13.7 % (11.0-15.5); WHITE BLOOD COUNT (AUTO) 7.5 K/uL (4.8-10.8)
[2025-01-25] MEDS: CYCLOBENZAPRINE HCL 10 MG TABLET PO ONE (23:52)
[2025-01-26 00:03] LABS: ADD UA MICROSCOPIC YES; APPEARANCE,URINE CLOUDY (CLEAR); BILIRUBIN,URINE 0.5 mg/dL (NEGATIVE); COLOR,URINE YELLOW (YELLOW); GLUCOSE, URINE (UA) 200 mg/dL (NEGATIVE); KETONES,URINE 40 mg/dL (NEGATIVE); LEUKOCYTE ESTERASE ,URINE NEGATIVE Leu/uL (NEGATIVE); NITRATE,URINE NEGATIVE (NEGATIVE); OCCULT BLOOD,URINE LARGE (NEGATIVE); PROTEIN,URINE 600 mg/dL (NEGATIVE)
[2025-01-26] MEDS: ketOROlac 10 MG TABLET PO ONE (00:05)
[2025-01-26 00:07] LABS: BACTERIA,URINE RARE /HPF (None Seen); MUCUS,URINE MOD LPF (None Seen); RBC,URINE TNTC /HPF (0-1); SQUAMOUS EPITHELIAL CELL,UR FEW /HPF (0-2)
--- NOTE | 2025-01-26 00:10 | NUR ---
TRANSFERED CARE TO [facility] AT THIS TIME
[2025-01-26 00:11] VITALS: BP 128/76; PULSE 89; RESP 16; TEMP 98.1; O2SAT 98
[2025-01-26] MEDS ORDERED: AZIT250T9 PO (00:37)
[2025-01-26] MEDS ORDERED: BENZ-39 PO (00:37)
== END 2025-01-26 00:40 | disposition home or self-care (01) ==
LOC: EDH 21:11
DX: J20.9 Acute bronchitis, unspecified (principal); E11.9 Type 2 diabetes mellitus without complications; F17.200 Nicotine dependence, unspecified, uncomplicated; Z20.822 Contact with and (suspected) exposure to COVID-19; Z79.1 Long term (current) use of non-steroidal anti-inflammatories (NSAID); Z79.4 Long term (current) use of insulin; Z79.899 Other long term (current) drug therapy; Z90.49 Acquired absence of other specified parts of digestive tract; Z98.890 Other specified postprocedural states
CPT/HCPCS: 99283; 96360; 87635; 80048; 85025; 87086; 87880; 87804 ×2; 81001; 36415; J7120

== ENCOUNTER 2025-05-30 14:28 | Emergency (ER) | payer BC ==
[~2025-05-30] VITALS: Ht 154.9 cm; Wt 72.6 kg
[~2025-05-30 14:28] MED LIST changes: +BENZ-39 PO; +IBUP-1492 PO; -IBUP-2070 PO
[2025-05-30] MEDS: LACTATED RINGERS 1000ML 1,000 ML IV ONE (15:11)
[2025-05-30 15:27] LABS: IMMATURE GRANULOCYTE ABSOLUTE 0.02 K/uL (0-1); NUCLEATED RED BLOOD CELLS 0.0 % (0.0-0.19); PLATELET COUNT (AUTO) 322 K/uL (130-400); RED BLOOD CELL COUNT(AUTO) 4.44 MIL/uL (4.00-5.50); RED CELL DISTRIBUTION WIDTH 13.7 % (11.0-15.5); WHITE BLOOD COUNT (AUTO) 8.0 K/uL (4.8-10.8)
[2025-05-30 16:04] LABS: CREATINE KINASE, TOTAL 39 U/L (21-232)
[2025-05-30 16:05] LABS: ALCOHOL, BLOOD < 3 mg/dL (0-10)
[2025-05-30 17:15] LABS: CREATININE 1.1 mg/dL (0.5-1.0); GLOMERULAR FILTR. RATE CALC 67.0 mL/min (>90); GLUCOSE,RANDOM 302.0 mg/dL (70-105); SODIUM SERUM 137.0 mmol/L (136-145); UREA NITROGEN, BLOOD 25.0 mg/dL (7-18)
[2025-05-30 17:23] LABS: APPEARANCE,URINE CLOUDY (CLEAR); GLUCOSE, URINE (UA) >=1000 mg/dL (NEGATIVE); LEUKOCYTE ESTERASE ,URINE NEGATIVE Leu/uL (NEGATIVE); NITRATE,URINE NEGATIVE (NEGATIVE); OCCULT BLOOD,URINE MODERATE (NEGATIVE)
[2025-05-30 17:29] LABS: AMPHET/METH SCREEN,URINE POSITIVE (NEGATIVE); BARBITURATE SCREEN, URINE NEGATIVE (NEGATIVE); CANNABINOID SCREEN,URINE POSITIVE (NEGATIVE); COCAINE SCREEN,URINE POSITIVE (NEGATIVE)
[2025-05-30 17:32] LABS: ADD UA MICROSCOPIC YES
[2025-05-30 17:35] LABS: SQUAMOUS EPITHELIAL CELL,UR MOD /HPF (0-2)
--- NOTE | 2025-05-30 17:49 | ERN ---
General Chief Complaint: Halluciations Stated Complaint: SEES SHADOWS AND HEARS WORDS Time Seen by MD: 14:38 History of Present Illness Initial Comments 35-year-old female has multiple complaints. She reports feeling generally unwell, she reports feeling dehydrated, her head hurts, her abdomen hurts, all over arms and legs hurt. She said she seeing shadows she is very concerned that somebody is following her. On initial examination she seems clinically intoxicated, but she denies any drug or alcohol use. No signs of trauma. Allergies: Coded Allergies: No Known Drug Allergies (Unverified Allergy, Unknown, 11/30/19) Home Meds Active Scripts Benzonatate (Tessalon Perles) 100 Mg Cap, 1 CAP PO TID for cough for 10 Days, #30 CAP 0 Refills Prov:PALLAVI DUKE MD 01/26/25 Azithromycin (Azithromycin) 250 Mg Tablet, 1 TAB PO AD for 5 Days, #6 TAB 0 Refills 2 the first day followed by 1 for days 2-5 Prov:PALLAVI DUKE MD 01/26/25 Clindamycin HCl (Clindamycin HCl) 300 Mg Capsule, 1 CAP PO QID for 10 Days, #40 CAP 0 Refills Prov:RON CRISOSTOMO REHABILITATION NURSE 07/14/24 Polyethylene Glycol 3350 ([id number]) 17 Gram/Dose Powder, 20 GM PO TID for constipation, #400 APPL Prov:RICK ERICKSON DO 03/09/24 Amoxicillin/Potassium Clav (Amox Tr-K Clv 875-125 mg Tab) 875 Mg-125 Mg Tablet, 1 EACH PO BID for 10 Days, #20 TAB Prov:TONY SANCHEZ [employer]ILN [employer] 09/13/23 Albuterol Sulfate (Proair Digihaler) 90 Mcg Aer.pw.bas, 2 PUFF IH QID, #1 UNIT Prov:DUNG DE GUZMAN MD 09/05/23 Guaifenesin/Dextromethorphan (Mucinex Dm ER 1,200-60 mg Tab) 1,200 Mg-60 Mg Tbmp.12hr, 1 EACH PO BID, #20 TAB Prov:DUNG DE GUZMAN MD 09/05/23 Ibuprofen (Motrin/Advil) 800 Mg Tab, 800 MG PO TID, #30 TAB Prov:DUNG DE GUZMAN MD 09/05/23 Prednisone (Prednisone) 20 Mg Tablet, 1 TAB PO AD for 6 Days, #14 TAB 0 Refills TAKE 3 TAB BY MOUTH daily X3 DAYS, THEN TAKE 2 TAB BY MOUTH daily X2 DAYS, THEN TAKE 1 TAB BY MOUTH ONCE A DAY X1 DAY. Prov:DUNG DE GUZMAN MD 09/05/23 Ondansetron (Ondansetron Odt) 4 Mg Tab.rapdis, 4 MG PO Q6HPRN PRN for nausea, #16 TAB 0 Refills Prov:JILL BOSS Sr., MD 06/18/23 Mupirocin (Mupirocin Ointment) 22 Gm Oint, 1 APPL TP BID for 10 Days, #30 G Prov:JUDITH SANCHEZ 04/05/23 Cephalexin (Cephalexin) 500 Mg Capsule, 500 MG PO TID for 10 Days, #30 CAP Prov:JUDITH SANCHEZ 04/05/23 Ibuprofen (Ibuprofen) 600 Mg Tablet, 600 MG PO Q6H PRN for PAIN, #15 TAB Prov:JUDITH SANCHEZ 04/05/23 Azithromycin (Azithromycin) 250 Mg Tablet, 250 MG PO DAILY for 5 Days, #6 TAB Take 2 now then 1 daily until complete Prov:PAUL GOODWIN 02/11/23 Benzonatate (Benzonatate) 200 Mg Capsule, 200 MG PO TID PRN for COUGH for 14 Days, #42 CAP Prov:PAUL GOODWIN 02/11/23 Oseltamivir Phosphate (Tamiflu) 75 Mg Cap, 75 MG PO BID for 5 Days, #10 CAP Prov:PAUL GOODWIN 02/11/23 Bacillus Coagulans (Probiotic) 1 Each Capsule.dr, 1 EACH PO DAILY, #30 CAP Prov:MARIAMA GE 01/02/23 Cyclobenzaprine HCl (Cyclobenzaprine HCl) 5 Mg Tablet, 5 MG PO TID PRN for MUSCLE SPASMS, #15 TAB Prov:MARIAMA GE 01/02/23 D-Methorphan Hb/P-Epd HCl/Bpm (Bromfed Dm Cough Syrup) 118 Ml Syrup, 10 ML PO Q4HPRN PRN for COUGH for 10 Days, #100 ML Prov:PAUL GOODWIN 11/12/22 Benzonatate (Benzonatate) 200 Mg Capsule, 200 MG PO TID PRN for COUGH for 14 Days, #42 CAP Prov:BUDDYPAUL Chip [facility] 11/12/22 Azithromycin (Azithromycin) 250 Mg Tablet, 250 MG PO DAILY for 5 Days, #6 TAB Take 2 now then 1 daily until complete Prov:PAUL GOODWIN Chip [facility] 11/12/22 Ondansetron (Ondansetron Odt) 4 Mg Tab.rapdis, 4 MG PO TID, #21 TAB Prov:DARCI HEMPHILL 09/06/22 Dicyclomine HCl (Bentyl) 20 Mg Tab, 20 MG PO QID, #28 TAB Prov:DARCI HEMPHILL 09/06/22 Cefuroxime Axetil (Cefuroxime) 500 Mg Tablet, 500 MG PO BID for 10 Days, #20 TAB Prov:DARCI HEMPHILL 09/06/22 Cephalexin Monohydrate (Keflex) 500 Mg Cap, 500 MG PO TID, #21 CAP Prov:MARIAMA GE [facility] 06/13/22 Ondansetron (Ondansetron Odt) 4 Mg Tab.rapdis, 4 MG PO TID, #15 TAB 0 Refills Prov:JOSE ROBERTO HILLS MD 04/17/22 Docusate Sodium (Colace) 100 Mg Capsule, 100 MG PO BID for 7 Days, #14 CAP Prov:SAMEER MATHIS 07/18/20 Reported Medications Insulin Glargine,Hum.rec.anlog (Lantus) 100 Units/Ml Inj, 35 UNITS SQ DAILY for 30 Days, ML 06/18/21 Insulin Lispro (Humalog) 100 Unit/1 Ml Insuln.pen, 15 UNITS SQ ACHS, SYRINGE 06/18/21 Past Medical History Past Medical History: Diabetes-Type II, Other Medical History Other: GASTRITIS Past Surgical History: Cholecystectomy, Family History Family History: Negative Social History Social History: Smokers, ETOH, Lives with family, Other Female( History) : 4 Para: 3 Aborts: 1 ROS Dictation CONSTITUTIONAL: No chills, no fever, no weakness, no diaphoresis, no malaise. HEAD/FACE: No signs of trauma. EENT: No eye pain, no blurred vision, no tearing, no double vision, no ear pain, no ear discharge, no nose pain, no nasal congestion, no throat pain, no throat swelling, no mouth pain. RESPIRATORY: No cough, no orthopnea, no SOB, no stridor, no wheezing. CARDIOVASCULAR: No chest pain, no edema, no palpitations, no syncope. GASTROINTESTINAL/ABDOMINAL: No abdominal pain, no constipation, no diarrhea, no nausea, no vomiting. GENITOURINARY: No abnormal discharge, no dysuria, no frequent urination, no hematuria. No complaints of pain in the genitals. MUSCULOSKELETAL: No back pain, no gout, no joint pain, no joint swelling, no muscle pain, no muscle stiffness, no neck pain. INTEGUMENTARY: No change in color, no change in hair/nails, no dryness, no lesion, no lumps, no rash. NEUROLOGICAL/PSYCH: No anxiety, not depressed, no emotional problem, no headache, no numbness, no pre-existing deficit, no history of seizures, no tremors, no weakness. HEMATOLOGIC/LYMPHATIC: Not anemic, no history of blood clots, no apparent bleeding, no bruising, glands not swollen. All Systems Negative, Except as Noted. Physical Exam Physical Exam Dictation VITAL SIGNS: Reviewed. GENERAL APPEARANCE: Alert, oriented x3, no acute distress. HEAD AND FACE: Non-traumatic. EYES: PERRL, pink conjunctivas, eyelid no trauma, anterior chamber clear. EARS: Pinnas intact and no signs of trauma or erythema. Ear canals clear and no discharge. TMs no erythema. NOSE: No discharge, no bleeding. OROPHARYNX: Mouth normal, teeth no caries, tongue pink. Pharynx clear, no erythema. Tonsils no exudates, no abscesses noted. Mucous membrane moist. NECK: Supple, non-tender, no thyromegaly, no masses, no JVD, no bruits. BREAST: Deferred. CHEST: No tenderness, no crepitus, no paradoxical movement, no retractions. LUNGS: Clear, well-ventilated, symmetric, no rales, no wheezing, no rhonchi, no stridor, good breath sounds bilaterally. HEART: Regular rate, regular rhythm, no murmur, no gallops. VASCULAR: No peripheral edema. ABDOMEN: Soft, positive bowel sounds, nondistended, no guarding, nontender, no rebound, no masses no hepatomegaly, no splenomegaly, no Louis's sign, no hernias. RECTAL: Deferred. GENITAL: Deferred. NEUROLOGICAL: Normal speech, gross motor function intact, gross sensory function intact. MUSCULOSKELETAL: Neck nontender, full range of motion, back nontender, full range of motion. EXTREMITIES: Nontender, full range of motion. SKIN: Color pink, dry, no turgor, no rash, no lacerations, no abrasions, no contusions. LYMPHATICS: Deferred. Results Laboratory and Microbiology Lab and Micro Result Laboratory Tests Test 05/30/25 15:06 05/30/25 15:20 05/30/25 17:10 Whole Blood Glucose 297 MG/DL (70-110) H White Blood Count 8.0 K/uL (4.8-10.8) Red Blood Count 4.44 MIL/uL (4.00-5.50) Hemoglobin 12.8 g/dL (12.0-16.0) Hematocrit 37.4 % (36-48) Mean Corpuscular Volume 84.2 fL (79-99) Mean Corpuscular Hemoglobin 28.8 pg (27.0-33.0) Mean Corpuscular Hemoglobin Concent 34.2 g/dL (32.0-36.0) Red Cell Distribution Width 13.7 % (11.0-15.5) Platelet Count 322 K/uL (130-400) Mean Platelet Volume 9.1 fL (7.5-10.5) Immature Granulocyte % (Auto) 0.3 % (0-1) Neutrophils (%) (Auto) 78.4 % (40.0-77.0) H Lymphocytes (%) (Auto) 13.2 % (21.0-51.0) L Monocytes (%) (Auto) 7.0 % (3.0-13.0) Eosinophils (%) (Auto) 0.8 % (0.0-8.0) Basophils (%) (Auto) 0.3 % (0.0-5.0) Neutrophils # (Auto) 6.3 K/uL (1.8-7.7) Lymphocytes # (Auto) 1.1 K/uL (1.0-4.8) Monocytes # (Auto) 0.6 K/uL (0.1-1.0) Eosinophils # (Auto) 0.06 K/uL (0.00-0.70) Basophils # (Auto) 0.02 K/uL (0.00-0.20) Absolute Immature Granulocyte (auto 0.02 K/uL (0-1) Nucleated Red Blood Cells 0.0 % (0.0-0.19) Sodium Level 137 mmol/L (136-145) Potassium Level 3.5 mmol/L (3.5-5.1) Chloride Level 98 mmol/L (101-111) L Carbon Dioxide Level 24 mmol/L (21-32) Blood Urea Nitrogen 25 mg/dL (7-18) H Creatinine 1.1 mg/dL (0.5-1.0) H Glomerular Filtration Rate Calc 67 mL/min (>90) Random Glucose 302 mg/dL (70-105) H Whole Blood Ketones Quantitative 3.0 mmol/L (0.0-0.6) H Total Calcium 8.6 mg/dL (8.5-10.1) Total Creatine Kinase 39 U/L (21-232) Serum Test, Qualitative NEGATIVE (NEGATIVE) Salicylates Level < 2.8 mg/dL (2.8-20.0) L Acetaminophen Level < 1 mcg/mL (10-30) L Serum Alcohol < 3 mg/dL (0-10) Urine Color YELLOW (YELLOW) Urine Appearance CLOUDY (CLEAR) H Urine pH 6.0 (5.0-8.0) Urine Specific [place] 1.031 (1.001-1.031) Urine Protein 300 mg/dL (NEGATIVE) H Urine Glucose (UA) >=1000 mg/dL (NEGATIVE) H Urine Ketones 60 mg/dL (NEGATIVE) H Urine Occult Blood MODERATE (NEGATIVE) H Urine Nitrate NEGATIVE (NEGATIVE) Urine Bilirubin NEGATIVE mg/dL (NEGATIVE) Urine Urobilinogen 0.2 mg/dL (0.2-1.0) Urine Leukocyte Esterase NEGATIVE López/uL Urine RBC 6-10 /HPF (0-1) H Urine WBC 6-10 /HPF (0-1) H Urine Squamous Epithelial Cells MOD /HPF (0-2) Urine Bacteria RARE /HPF (None Seen) Urine Opiates Screen NEGATIVE (NEGATIVE) Urine Barbiturates Screen NEGATIVE (NEGATIVE) Urine Phencyclidine Screen NEGATIVE (NEGATIVE) Urine Amphetamines Screen POSITIVE (NEGATIVE) H Urine Benzodiazepines Screen POSITIVE (NEGATIVE) H Urine Cocaine Screen POSITIVE (NEGATIVE) H Urine Marijuana (THC) Screen POSITIVE (NEGATIVE) H MDM CC: Multiple complaints Historian: Patient Comorbidities: Diabetes insulin dependent Limitations by social determinants of health: None Differential diagnosis: The patient appears to be intoxicated I suspect drug abuse for his alcohol abuse, also concern for DKA, head injury, VANESSA, electrolyte abnormality, dehydration, other. Vital signs: Tachycardic heart rate 110 otherwise unremarkable. CBC is stable. Chemistry shows VANESSA creatinine 1.1 BUN at 25 and a is unremarkable. Glucose 300. No signs of DKA. Urinalysis shows dehydration with high specific gravity also glucose. Tox screen positive for amphetamines, cocaine, benzodiazepines, marijuana. Consistent with the patient's presentation. Patient received IV fluids in the ER. Patient is at baseline mentation we will DC. ED Course Orders Procedure Category Date Status Time Cbc With Differential LAB 05/30/25 Complete 14:46 Alcohol, Blood LAB 05/30/25 Complete 14:46 Salicylate LAB 05/30/25 Complete 14:46 Acetaminophen LAB 05/30/25 Complete 14:46 Testing, LAB 05/30/25 Complete Serum Hcg 14:46 Urinalysis Profile LAB 05/30/25 Complete 14:46 Creatine Kinase, Total LAB 05/30/25 Complete 14:46 Drug Screen Urine LAB 05/30/25 Complete 14:46 Lactated Ringers PHA 05/30/25 Complete 1000ml (Lactated 15:30 Ketorolac PHA 05/30/25 Complete Tromethamine 15mg/Ml 15:30 Ketone Blood LAB 05/30/25 Complete Quantitative 15:06 Basic Metabolic Panel LAB 05/30/25 Complete 16:19 Culture Urine AUGUSTIN 05/30/25 In Process 17:36 Current Medications Medications (Trade) Dose Ordered Sig/Yuniel Route PRN Reason Start Time Stop Time Status Last Admin Dose Admin Ketorolac Tromethamine (toRADol) 15 mg ONCE ONCE IV 05/30/25 15:30 05/30/25 15:31 DC 05/30/25 15:11 Lactated Ringer's 1,000 ml @ 0 mls/hr ONCE ONCE IV 05/30/25 15:30 05/30/25 15:31 DC 05/30/25 15:11 Vital Signs Date Time Temp Pulse Resp B/P (MAP) Pulse Ox O2 Delivery O2 Flow Rate FiO2 05/30/25 15:47 98.2 89 18 164/99 98 Room Air* 0 05/30/25 14:52 98.2 102 18 124/85 98 Room Air* 0 05/30/25 14:33 97.9 110 18 118/79 98 Room Air DX & DISP Disposition: Discharge Departure Impression: Primary Impression: Polysubstance abuse Condition: Stable Additional Instructions: Reduce recreational drug abuse. Referrals: SELF,REFERRAL (PCP) RICK ERICKSON DO May 30, 2025 17:49
[2025-05-30 17:51] VITALS: BP 160/90; PULSE 85; RESP 18; TEMP 98.3; O2SAT 98
== END 2025-05-30 18:06 | disposition home or self-care (01) ==
LOC: EDH 14:28
DX: F19.10 Other psychoactive substance abuse, uncomplicated (principal); E11.9 Type 2 diabetes mellitus without complications; F17.200 Nicotine dependence, unspecified, uncomplicated; Z79.1 Long term (current) use of non-steroidal anti-inflammatories (NSAID); Z79.4 Long term (current) use of insulin; Z79.899 Other long term (current) drug therapy; Z90.49 Acquired absence of other specified parts of digestive tract
CPT/HCPCS: 99284; 96374; 96361; 82550; 80048; 80305; 84703; 85025; 87086 ×3; 87186 ×2; 82948; 82010; 36415; 81001; J1885; G0481; J7120